=== PATIENT | female | born 1975 | race Two or more races ===

== ENCOUNTER 2020-08-19 08:53 | Outpatient (REF) | payer OTHER, SELFPAY | END 2020-08-19 08:54 | disposition home or self-care (01) | LOC: HO.LAB 08:53 | PROVIDERS: Visit Provider Internal Medicine | DX: Z20.828 Contact with and (suspected) exposure to other viral communicable diseases (principal) | CPT/HCPCS: C9803; U0003 ==

== ENCOUNTER 2021-01-04 07:33 | Outpatient (REF) | payer OTHER, SELFPAY ==
[2021-01-04 07:51] LABS: COVID-19 Test Negative (Negative)
== END 2021-01-04 07:34 | disposition home or self-care (01) ==
LOC: HO.LAB 07:33
PROVIDERS: Visit Provider Internal Medicine
DX: Z20.822 Contact with and (suspected) exposure to COVID-19 (principal)
CPT/HCPCS: 36415; 87635; C9803

== ENCOUNTER 2021-03-08 11:25 | Emergency (ER) | payer OTHER, SELFPAY ==
--- NOTE | ~2021-03-08 | XR_ITS ---
EXAMINATION: XR CHEST CLINICAL INFORMATION: Chest pain COMPARISON: None TECHNIQUE: Frontal view of the chest was obtained. FINDINGS: No significant abnormality is noted involving the heart, lungs, mediastinum, bony thorax or soft tissues. XR/XR chest 1V IMPRESSION: Unremarkable chest examination.
[2021-03-08 11:37] VITALS: BP 160/87; PULSE 85; RESP 18; TEMP 36.7; O2SAT 99; BMI 24.0
--- NOTE | 2021-03-08 11:44 | ECG_ITS ---
Test Reason : CP Blood Pressure : / mmHG Vent. Rate : 076 BPM Atrial Rate : 076 BPM P-R Int : 146 ms QRS Dur : 090 ms QT Int : 374 ms P-R-T Axes : 007 -11 008 degrees QTc Int : 420 ms Normal sinus rhythm Minimal voltage criteria for LVH, may be normal variant Inferior infarct , age undetermined Abnormal ECG When compared with ECG of 15-SEP-2019 14:20, Inferior infarct is now Present Referred By: Generic ED Physician Electronically Signed By:Quinton Rodriguez
[2021-03-08 12:31] LABS: MANUAL DIFF FLAG NO
[2021-03-08 12:39] LABS: Basophils Percent Auto 0.5 % (0-2); Eosinophils Percent Auto 0.4 % (0-4); Hematocrit 39.3 % (37-47); Hemoglobin 13.4 g/dl (12.0-16.0); Imm Gran Abs Auto 0.02 X10*3/uL (0.00-0.03); Imm Gran Pct Auto 0.2 % (0.0-0.4); Lymphocytes Absolute Auto 3.9 X10*3/uL (1.2-4.9); Lymphocytes Percent Auto 46.8 % (20-40); Mean Corpuscular HGB Conc 34.1 g/dl (31.0-35.0); Mean Corpuscular Hemoglobin 31.2 pg (27.0-33.0); Mean Corpuscular Volume 91.6 fL (80-98); Mean Platelet Volume 10.7 fL (9.4-12.3); Monocytes Absolute Auto 0.5 X10*3/uL (0.1-1.2); Neutrophils Absolute Auto 3.9 X10*3/uL (2.0-8.3); Neutrophils Percent Auto 46.1 % (45-73); Platelet Count 316 X10*3/uL (160-400); Red Blood Count 4.29 X10*6/uL (4.20-5.50); Red Cell Distribution Width 12.5 % (11.0-16.0); White Blood Count 8.3 X10*3/uL (4.8-10.8)
[2021-03-08 13:11] LABS: Anion Gap 9 (12-20); Blood Urea Nitrogen 12 mg/dL (9-16); Calcium 9.9 mg/dL (8.4-10.2); Carbon Dioxide 29 mmol/L (22-29); Chloride 105 mmol/L (96-108); Creatinine Clr Calc Pharmacy 82.9; Estimated Glomerular Filt Rate > 60; Glucose Random 99 mg/dL (60-115); Potassium 4.4 mmol/L (3.3-5.1); Sodium 139 mmol/L (135-145); Troponin-I High Sensitivity < 3.5 ng/L (<3.5-17.0)
--- NOTE | 2021-03-08 14:21 | ED.CHESTPAIN ---
HPI - Chest Pain General Chief Complaint: Chest Pain Stated Complaint: rapid hearbeat Time Seen by Provider: 03/08/21 14:21 Source: patient Mode of arrival: ambulatory Limitations: no limitations History of Present Illness HPI narrative: At work patient had tachycardia, she has a history of functional murmur. complaint: other (palpitations) Onset (ago): hour(s) Timing of current episode: constant Prior episodes: Yes Onset: during rest Pain radiation: none Relieving factors: nothing Exacerbating factors: nothing Risk Factors Coronary artery disease risk factors: none Related Data Previous Rx's Medication Instructions Recorded budesonide 90 mcg/actuation breath 1 inh INHALATION BID 30 Days #1 ea 12/07/20 activated powder inhaler gabapentin 300 mg capsule 300 mg PO TID 30 Days #90 cap 12/07/20 tramadol 50 mg tablet 50 mg PO BID PRN 30 Days #60 tab 12/07/20 cholestyramine (with sugar) 4 gram 1 ea PO BID #60 packet 02/27/21 powder for susp in a packet Allergies Allergy/AdvReac Type Severity Reaction Status Date / Time methylprednisolone Allergy Severe throat Verified 03/08/21 11:37 [From SOLU-MEDROL] swelling Sulfa (Sulfonamide Allergy Intermediate UNKNOWN, Verified 03/08/21 11:37 Antibiotics) hives, [SULFA (SULFONAMIDE hives ANTIBIOTICS)] naproxen AdvReac Intermediate nausea,head Verified 03/08/21 11:37 aches,tachy cardia Review of Systems Constitutional: Constitutional: Reports no additional constitutional complaints Eyes: Eyes: Reports no additional eye complaints ENT: Denies dizziness Cardiovascular: Cardiovascular: Reports no additional cardiovascular complaints Respiratory: Respiratory: Reports as per HPI Gastrointestinal: Gastrointestinal: Reports no additional gastrointestinal complaints Genitourinary: Genitourinary: Reports no additional female genitourinary complaints Musculoskeletal: Musculoskeletal: Reports no additional musculoskeletal complaints Integumentary/Breasts: Skin/Breast: Denies rash Neurologic: Reports system reviewed and no additional complaints, except as documented, Denies dizziness and Denies Sensory deficit (Neuro) Psychiatric: Psychiatric: Denies anxiety [facility] Past Medical History Medical History Back pain Bipolar 1 disorder Heart attack Murmur Seizures Shortness of breath Social History Social History Alcohol intake: never Patient Tobacco Use Status: Current everyday Tobacco user Cigarettes Per Day: 5 Use of substances other than those prescribed or required for medical reasons: Yes Substance Use Type: Marijuana Advance Directives: No Advance Directives Information Provided: No Patient : No Physical Exam Vital Signs: Vital Signs: Last Vital Signs Temp 98.1 F 03/08/21 11:37 Pulse 69 03/08/21 16:11 Resp 14 03/08/21 16:11 BP 107/80 03/08/21 16:11 Pulse Ox 99 03/08/21 16:11 Body Mass Index 24.0 Const: General: healthy appearing Nutritional Appearance: average body habitus Orientation/consciousness: oriented to person and patient oriented x3 Limitations: no limitations HENMT: Head: Yes normal to inspection Ears: external ears normal General nose exam: Normal external nose present Mouth: Normal oral and palatal mucosa present and oropharynx normal Throat: Yes posterior oropharynx normal Eyes: General: appearance normal, both eyes and all related structures Neck: Other: supple Neck: Yes normal visual inspection Chest: Chest palpation & inspection: normal inspection of the chest Resp: Auscultation: clear to auscultation bilaterally Cardio: Jugular venous distension: no JVD Rate: regular rate Rhythm: regular rhythm Heart sounds: S1 normal heart sound present and S2 normal heart sound present GI: Inspection: Yes normal to inspection Palpation (GI): Soft to palpation, nontender and No hepatosplenomegaly present Auscultation: normal bowel sounds : General: Yes no CVA tenderness Back/Spine/Pelvis: Back: no CVA tenderness Skin: General skin exam: no rashes or lesions noted Neuro: General: oriented to person and patient oriented x3 Cranial nerves: Yes CN's II-XII intact bilaterally Motor exam (neuro): 5/5 motor strength present throughout Sensory Exam: No Sensory deficit (Neuro) Extrem: General: Yes normal to inspection Psych: Appearance: grossly normal Course Course Course Narrative: troponins remain negative will dc home MDM - Chest Pain Lab Data Result diagrams: 03/08/21 12:13 03/08/21 12:13 Labs: Lab Results 03/08/21 03/08/21 03/08/21 Range/Units 12:13 12:13 12:13 WBC 8.3 (4.8-10.8) X10*3/uL RBC 4.29 (4.20-5.50) X10*6/uL Hgb 13.4 (12.0-16.0) g/dl Hct 39.3 (37-47) % MCV 91.6 (80-98) fL MCH 31.2 (27.0-33.0) pg MCHC 34.1 (31.0-35.0) g/dl RDW 12.5 (11.0-16.0) % Plt Count 316 (160-400) X10*3/uL MPV 10.7 (9.4-12.3) fL Immature Gran % (Auto) 0.2 (0.0-0.4) % Neut % (Auto) 46.1 (45-73) % Lymph % (Auto) 46.8 H (20-40) % [place] % (Auto) 6.0 (2-11) % Eos % (Auto) 0.4 (0-4) % Baso % (Auto) 0.5 (0-2) % Lymph # (Auto) 3.9 (1.2-4.9) X10*3/uL [place] # (Auto) 0.5 (0.1-1.2) X10*3/uL Eos # (Auto) 0.0 (0.0-0.4) X10*3/uL Baso # (Auto) 0.0 (0.0-0.2) X10*3/uL Abs Immat Gran (auto) 0.02 (0.00-0.03) X10*3/uL Absolute Neuts (auto) 3.9 (2.0-8.3) X10*3/uL Absolute Nucleated RBC 0.000 (0.0-0.012) X10*3/uL Nucleated RBC % (auto) 0.0 (0.0-0.2) /100WBC Sodium 139 (135-145) mmol/L Potassium 4.4 (3.3-5.1) mmol/L Chloride 105 (96-108) mmol/L Carbon Dioxide 29 (22-29) mmol/L Anion Gap 9 L (12-20) BUN 12 (9-16) mg/dL Creatinine 0.74 (0.5-1.4) mg/dL Estim Creat Clear Calc 82.9 Estimated GFR > 60 Random Glucose 99 (60-115) mg/dL Calcium 9.9 (8.4-10.2) mg/dL Troponin I High Sens < 3.5 (<3.5-17.0) ng/L 03/08/21 Range/Units 14:49 WBC (4.8-10.8) X10*3/uL RBC (4.20-5.50) X10*6/uL Hgb (12.0-16.0) g/dl Hct (37-47) % MCV (80-98) fL MCH (27.0-33.0) pg MCHC (31.0-35.0) g/dl RDW (11.0-16.0) % Plt Count (160-400) X10*3/uL MPV (9.4-12.3) fL Immature Gran % (Auto) (0.0-0.4) % Neut % (Auto) (45-73) % Lymph % (Auto) (20-40) % [place] % (Auto) (2-11) % Eos % (Auto) (0-4) % Baso % (Auto) (0-2) % Lymph # (Auto) (1.2-4.9) X10*3/uL [place] # (Auto) (0.1-1.2) X10*3/uL Eos # (Auto) (0.0-0.4) X10*3/uL Baso # (Auto) (0.0-0.2) X10*3/uL Abs Immat Gran (auto) (0.00-0.03) X10*3/uL Absolute Neuts (auto) (2.0-8.3) X10*3/uL Absolute Nucleated RBC (0.0-0.012) X10*3/uL Nucleated RBC % (auto) (0.0-0.2) /100WBC Sodium (135-145) mmol/L Potassium (3.3-5.1) mmol/L Chloride (96-108) mmol/L Carbon Dioxide (22-29) mmol/L Anion Gap (12-20) BUN (9-16) mg/dL Creatinine (0.5-1.4) mg/dL Estim Creat Clear Calc Estimated GFR Random Glucose (60-115) mg/dL Calcium (8.4-10.2) mg/dL Troponin I High Sens < 3.5 (<3.5-17.0) ng/L ECG Data ECG #1: Attestation: I personally reviewed and interpreted this ECG as follows: Interpretation: normal sinus rhythm rate of 75, no st or twave changes Discharge Plan Discharge Clinical Impression: Heart palpitations Patient Disposition: Home, Self-Care Instructions: Heart Palpitations (ED) Prescriptions: No Action cholestyramine (with sugar) 4 gram powder in packet 1 ea PO BID Qty: 60 RF: 6 budesonide 90 mcg/actuation aerosol powdr breath activated 1 inh inhalation BID 30 Days Qty: 1 RF: 3 tramadol 50 mg tablet 50 mg PO BID PRN (Reason: pain) 30 Days Qty: 60 RF: 0 gabapentin 300 mg capsule 300 mg PO TID 30 Days Qty: 90 RF: 3 Referrals: Alise Yap MD [Primary Care Provider] - 2 days
--- NOTE | 2021-03-08 15:02 | PC.NURSE ---
Patient is sitting up in bed watching tv in no distress. 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 Pt states that when she has the episodes of her heart racing that she gets short of breath.
[2021-03-08 15:03] VITALS: BP 109/73; PULSE 64; RESP 14; O2SAT 97
[2021-03-08 15:06] VITALS: PULSE 61
[2021-03-08 15:20] LABS: Troponin-I High Sensitivity < 3.5 ng/L (<3.5-17.0)
[2021-03-08 16:11] VITALS: BP 107/80; PULSE 69; RESP 14; O2SAT 99
--- NOTE | 2021-03-08 16:15 | PC.NURSE ---
Patient sitting up on side of bed in no distress after ambulating to the bathroom and back. Pt denies any increase in chest discomfort or feeling like her heart is racing. Pt states she is feeling better
--- NOTE | 2021-03-08 17:17 | PC.NURSE ---
Discharge instructions given to patient who verbalized understanding and denies any questions.
== END 2021-03-08 17:25 | disposition home or self-care (01) ==
PROVIDERS: Emergency Provider Emergency Medicine; PCP Internal Medicine
DX: R00.2 Palpitations (principal); R07.9 Chest pain, unspecified
CPT/HCPCS: 36415; 71045; 80048; 84484; 85025; 93005; 99283; 99285

== ENCOUNTER 2021-09-07 08:49 | Outpatient (REF) | payer OTHER, SELFPAY | END 2021-09-07 08:50 | disposition home or self-care (01) | LOC: HO.LAB 08:49 | PROVIDERS: Visit Provider Internal Medicine | DX: Z20.822 Contact with and (suspected) exposure to COVID-19 (principal) | CPT/HCPCS: C9803; U0003; U0005 ==

== ENCOUNTER 2021-10-06 08:47 | Outpatient (REF) | payer OTHER, SELFPAY ==
[2021-10-06 12:59] LABS: Influenza A PCR NEGATIVE (Negative); Influenza B PCR NEGATIVE (Negative); Resp Syncy Virus RNA Qual PCR NEGATIVE (Negative); SARS COV2 PCR INHOUSE NEGATIVE (Negative)
== END 2021-10-06 08:48 | disposition home or self-care (01) ==
LOC: HO.LAB 08:47
PROVIDERS: PCP Internal Medicine; Visit Provider Nurse Practitioner Family
DX: Z20.822 Contact with and (suspected) exposure to COVID-19 (principal); R05.9 Cough, unspecified
CPT/HCPCS: 0241U

== ENCOUNTER 2021-12-12 15:34 | Outpatient (REF) | payer OTHER, SELFPAY ==
[2021-12-12 16:46] LABS: Influenza A PCR NEGATIVE (Negative); Influenza B PCR NEGATIVE (Negative); Resp Syncy Virus RNA Qual PCR NEGATIVE (Negative); SARS COV2 PCR INHOUSE NEGATIVE (Negative)
== END 2021-12-12 15:35 | disposition home or self-care (01) ==
LOC: HO.LAB 15:34
PROVIDERS: PCP Internal Medicine; Visit Provider Nurse Practitioner Family
DX: Z20.822 Contact with and (suspected) exposure to COVID-19 (principal); R42 Dizziness and giddiness
CPT/HCPCS: 0241U

== ENCOUNTER → 2023-01-02 13:15 | Outpatient (BNVA) | payer OTHER, SELFPAY | PROVIDERS: PCP Internal Medicine; Visit Provider Psychiatry & Neurology Neurology | DX: R56.9 Unspecified convulsions (principal); R53.83 Other fatigue | CPT/HCPCS: 99202 ==

== ENCOUNTER 2023-05-02 13:39 | Outpatient (AMB) | payer OTHER, SELFPAY ==
[2023-05-02 13:52] VITALS: BP 118/64; PULSE 105; O2SAT 98; BMI 25.4
--- NOTE | 2023-05-02 13:52 | A.OFFPC_ITS ---
Vital Signs 05/02/23 13:52 Height 5 ft 4 in Weight 148 lb 2 oz BMI 25.4 BP 118/64 Blood Pressure Location Lt brachial Position Sitting Pulse 105 H Pulse Source Pulse Oximeter Pulse Oximetry (%) 98 Oxygen Delivery Method Room Air Intake Visit Reasons: [facility] 04/19 epilepsy Intake Note: Patient is here to follow-up after a visit the emergency department at [facility] on 04/19/2023 for Seizures. Spa Attendant Required: No Accompanied by: Self / Same As Patient Allergies methylprednisolone [From SOLU-MEDROL] Allergy (Severe, Verified 05/02/23 14:23) throat swelling Sulfa (Sulfonamide Antibiotics) [SULFA (SULFONAMIDE ANTIBIOTICS)] Allergy (Intermediate, Verified 05/02/23 14:23) UNKNOWN, hives, hives naproxen Adverse Reaction (Intermediate, Verified 05/02/23 14:23) nausea,headaches,tachycardia Medication List - Last Reconciled 05/02/23 by Alise Villasenor MD albuterol sulfate 90 mcg/actuation 2 inhalations inhalation Q6H PRN budesonide 90 mcg/actuation (Pulmicort Flexhaler) 1 inh inhalation BID carbamazepine ER 200 mg PO BID clonazepam 1 mg PO BID gabapentin 300 mg PO BEDTIME mirtazapine 7.5 - 15 mg PO QAM mirtazapine 30 mg PO BEDTIME simethicone (Gas Relief (simethicone)) 80 mg PO TID-QID PRN Tobacco use date assessed: 01/02/23 Dental Screening Dental Screen Date: 05/02/23 Did you have a dental visit in the last 12 months?: Yes Did you have a dental problem in the last 6 months where you did not have access to dental care?: No Was dental information given to patient?: Patient has dentist HPI HPI Comments History of Present Illness Details This is 47-year-old female with bipolar disorder and seizures that comes today for follow-up on her seizure meds. She did went to the ER at the beginning of the month due to tonic clonic seizures witnessed and had a head CT that was within normal limits and labs that were within normal limits. She does follow with Neurology and is on carbamazepine I am pure she has an appointment for an EEG at the end of this month. Has not had a seizures since she was discharged from ER. Bipolar disorder stable and this is follow by Psychiatry. PFSH Medical History Back pain Bipolar 1 disorder FH: cholecystectomy Heart attack Hot flushes, perimenopausal Murmur Seizure disorder Seizures Shortness of breath Social History Housing: Apartment Alcohol intake: never Patient Tobacco Use Status: Current everyday Tobacco user Tobacco use type: Cigarette Cigarettes Per Day: 2 e-Cigarette/Vaping Use: Never Used Second Hand Smoke Exposure: No Substance Use Type: Marijuana service: No Current occupational status: employed Cognitive needs: No Hearing needs: No Vision needs: No Questionnaire Thrive Questionnaire Date Thrive assessed: 05/02/23 I am a: Patient What is your living situation today?: I have a steady place to live Within the past 12 months, did the food you bought not last and you didn't have the money to get more?: Never true Within the past 12 months, did you worry whether your food would run out before you got money to buy more?: Never true Do you have trouble paying for medicines?: No Do you have trouble getting transportation to medical appointments?: No Do you have trouble paying your heating and electricity bill?: No Do you have trouble taking care of your child, family member or friend?: No Do you have trouble with day-to-day activities such as bathing, preparing meals, shopping, managing finances, etc.?: No Are you currently unemployed and looking for a job?: No Are you interested in more education?: No Please select the resources that you would like help with: None Currently or been in a relationship where the following occur: no concerns reported ACOSTA-7 AMB Questionnaire ACOSTA-7 Date ACOSTA - 7 assessed: 05/02/23 Feeling nervous, anxious, or on edge: 3 = Nearly every day Not being able to stop or control worryin = Nearly every day Worrying too much about different things: 3 = Nearly every day Trouble relaxin = Not at all Being so restless that it is hard to sit still: 0 = Not at all Becoming easily annoyed or irritable: 0 = Not at all Feeling afraid as if something awful might happen: 0 = Not at all Total ACOSTA-7 score (0-4 normal; 5-9 mild; 10-14 moderate; 15-21 severe): 9 Source: Developed by Drs. Harpreet Ortiz, Sena Azevedo, Deo Ortiz and colleagues, with an educational kira from [employer]. ACOSTA-7 Assessment Billing ACOSTA-7 Assessment Tool: ACOSTA-7 Assessment 28143 Review of Systems Const All systems reviewed & are unremarkable except as noted in HPI and below Eyes Reports no additional complaints, Denies change in vision and Denies other visual disturbances Card Denies chest pain at rest, Denies chest pain with activity, Denies edema, Denies irregular heart rhythm, Denies claudication, Denies dyspnea, Denies dyspnea on exertion, Denies orthopnea, Denies paroxysmal nocturnal dyspnea and Denies slow heart rate Resp Denies cough, Denies dyspnea and Denies dyspnea on exertion GI Denies abdominal pain, Denies change in bowel habits, Denies excessive flatus, Denies nausea and Denies vomiting Denies urinary incontinence, Denies urinary hesitancy and Denies urinary urgency Musc Denies abnormal gait, Denies atrophy, Denies deformity and Denies limited range of motion Skin/Breast Denies bleeding lesions, Denies changing lesions and Denies rash Neuro Denies abnormal gait and Denies lack of coordination Physical exam (Primary Care) Vital Signs: Last Vital Signs Pulse 105 H 05/02/23 13:52 BP 118/64 05/02/23 13:52 Pulse Ox 98 05/02/23 13:52 Oxygen Delivery Method Room Air 05/02/23 13:52 BMI result Body Mass Index 25.4 Tobacco/Smoking Status: Tobacco use Status Tobacco use date assessed 01/02/23 05/02/23 14:02 Patient Tobacco Use Status Current everyday Tobacco 05/02/23 14:02 Tobacco use type Cigarette 05/02/23 14:02 e-Cigarette/Vaping Use Never Used 05/02/23 14:02 Thrive Assessment: Date of Thrive Assessment Date Thrive assessed 05/02/23 05/02/23 14:02 Currently or been in a relationship where the following occur: no concerns reported Eyes General: appearance normal, both eyes and all related structures Eyelids: Yes eyelids normal Conjunctivae: conjunctivae normal Neck Neck: Yes normal visual inspection and Yes supple Resp Effort & Inspection: normal respiratory effort Auscultation: clear to auscultation bilaterally Cardio Jugular venous distension: no JVD Rate: regular rate Rhythm: regular rhythm Heart sounds: S1 normal heart sound present and S2 normal heart sound present Extrem General: Yes full ROM Assessment and Plan Assessment & Plan (1) Seizures: Code(s): R56.9 - Unspecified convulsions Plan: Continue carbamazepine. Follow-up with Neurology. (2) Bipolar 1 disorder: Code(s): F31.9 - Bipolar disorder, unspecified Plan: Continue mirtazapine. Follow-up with psychiatry. Coding Level of Care Code Est Pt Level 3 (25931) Diagnoses Seizures R56.9 Bipolar 1 disorder F31.9 Additional Codes ACOSTA-7 Assessment Billing - ACOSTA-7 Assessment Tool: ACOSTA-7 Assessment 56552 ([id number]) Time Spent (min) 18
== END 2023-05-02 14:35 | disposition home or self-care (01) ==
PROVIDERS: PCP Internal Medicine; Visit Provider Internal Medicine
DX: R56.9 Unspecified convulsions (principal); F31.9 Bipolar disorder, unspecified
CPT/HCPCS: 99213

== ENCOUNTER 2023-05-09 13:04 | Outpatient (REF) | payer OTHER, SELFPAY ==
--- NOTE | 2023-05-09 13:07 | EEG_ITS ---
This is a 16-channel EEG with an EKG lead. The patient is reported awake during the tracing. Background EEG rhythm is 16 to 20 hertz 5 to 20 microvolt posteriorly and lower amplitude fast anteriorly. Photic stimulation is unremarkable. Hyperventilation is not performed. Cardiac lead does not reveal any significant abnormality. No sharp wave spikes or paroxysmal tendency noted. IMPRESSION: Unremarkable EEG. MD ANDRIA Escobar/SRINATH / [id number]
== END 2023-05-09 13:05 | disposition home or self-care (01) ==
LOC: HO.NEURO 13:04
PROVIDERS: PCP Internal Medicine; Visit Provider Psychiatry & Neurology Neurology
DX: R56.9 Unspecified convulsions (principal)
CPT/HCPCS: 95816

== ENCOUNTER 2023-05-27 21:20 | Emergency (ER) | payer OTHER, SELFPAY ==
[2023-05-27 21:37] VITALS: BP 130/67; PULSE 87; RESP 18; TEMP 36.9; O2SAT 98; BMI 23.9
--- NOTE | 2023-05-27 21:41 | ECG_ITS ---
Test Reason : CHEST PAIN Blood Pressure : / mmHG Vent. Rate : 084 BPM Atrial Rate : 084 BPM P-R Int : 152 ms QRS Dur : 086 ms QT Int : 366 ms P-R-T Axes : 046 049 052 degrees QTc Int : 432 ms Normal sinus rhythm Septal infarct , age undetermined Abnormal ECG When compared with ECG of 08-MAR-2021 12:08, Septal infarct is now Present Criteria for Inferior infarct are no longer Present Referred By: Generic ED Physician Electronically Signed By:JOSH LION
[2023-05-27 22:03] LABS: MANUAL DIFF FLAG NO
[2023-05-27 22:04] LABS: Basophils Percent Auto 0.4 % (0-2); Eosinophils Percent Auto 0.4 % (0-4); Hematocrit 39.3 % (37.0-47.0); Hemoglobin 13.8 g/dl (12.0-16.0); Imm Gran Abs Auto 0.02 X10*3/uL (0.00-0.03); Imm Gran Pct Auto 0.2 % (0.0-0.4); Lymphocytes Absolute Auto 4.5 X10*3/uL (1.2-4.9); Lymphocytes Percent Auto 41.7 % (20-40); Mean Corpuscular HGB Conc 35.1 g/dl (31.0-35.0); Mean Corpuscular Hemoglobin 31.4 pg (27.0-33.0); Mean Corpuscular Volume 89.5 fL (80.0-98.0); Monocytes Absolute Auto 0.8 X10*3/uL (0.1-1.2); Monocytes Percent Auto 7.6 % (2-11); Neutrophils Absolute Auto 5.4 x10*3/uL (2.0-8.3); Neutrophils Percent Auto 49.7 % (45-73); Platelet Count 294 X10*3/uL (160-400); Red Blood Count 4.39 X10*6/uL (4.20-5.50); Red Cell Distribution Width 12.4 % (11.0-16.0); White Blood Count 10.9 X10*3/uL (4.8-10.8)
[2023-05-27 22:19] LABS: Alanine Aminotransferase 8 U/L (0-31); Albumin Level 4.4 g/dL (3.5-5.0); Alkaline Phosphatase 67 U/L (39-117); Anion Gap 10 (12-20); Aspartate Amino Transferase 13 U/L (5-31); Bilirubin Total 0.3 mg/dL (0.0-1.0); Blood Urea Nitrogen 9 mg/dL (9-16); Calcium 9.8 mg/dL (8.4-10.2); Carbon Dioxide 28 mmol/L (22-29); Chloride 105 mmol/L (96-108); Creatinine Clr Calc Pharmacy 84.6; Estimated Glomerular Filt Rate > 60; Glucose Random 108 mg/dL (60-115); Potassium 3.4 mmol/L (3.3-5.1); Sodium 140 mmol/L (135-145); Total Protein 7.6 g/dL (6.5-8.0)
[2023-05-27 22:26] LABS: Troponin-I High Sensitivity < 2.7 ng/L (<3.5-17.0)
[2023-05-28] VITALS: BP 111/67; PULSE 65; RESP 18; TEMP 36.8; O2SAT 97
--- NOTE | 2023-05-28 00:31 | ED_ITS ---
HPI - General Adult General Chief complaint: General Medical Stated complaint: gargling went to spit all came out black Time Seen by Provider: 05/28/23 00:30 Source: patient Mode of arrival: ambulatory Limitations: no limitations History of Present Illness HPI narrative: patient noticed black colored saliva after gargling her mouth earlier today no history of stomach issues no melena patient had coffee prior to that Related Data Home Medications Medication Instructions Recorded Confirmed clonazepam 1 mg tablet 1 mg PO BID 12/12/21 05/02/23 mirtazapine 15 mg tablet 7.5 - 15 mg PO QAM 12/12/21 05/02/23 budesonide 90 mcg/actuation breath 1 inh inhalation BID 01/02/23 05/02/23 activated powder inhaler (Pulmicort Flexhaler) mirtazapine 30 mg tablet 30 mg PO BEDTIME 05/02/23 05/02/23 Previous Rx's Medication Instructions Recorded simethicone 80 mg chewable tablet 80 mg PO TID-QID PRN abdominal 12/12/21 (Gas Relief (simethicone)) distention #20 tabs albuterol sulfate 90 mcg/actuation 2 inh inhalation Q6H PRN shortness 01/02/23 breath activated powder inhaler of breath or wheezing #1 ea carbamazepine 200 mg 200 mg PO BID #60 caps 01/02/23 capsule,extended release [id number] gabapentin 300 mg capsule 300 mg PO BEDTIME #30 caps 01/02/23 omeprazole 40 mg capsule,delayed 40 mg PO DAILY #20 caps 05/28/23 release Allergies Allergy/AdvReac Type Severity Reaction Status Date / Time methylprednisolone Allergy Severe throat Verified 05/02/23 14:23 [From SOLU-MEDROL] swelling Sulfa (Sulfonamide Allergy Intermediate UNKNOWN, Verified 05/02/23 14:23 Antibiotics) hives, [SULFA (SULFONAMIDE hives ANTIBIOTICS)] naproxen AdvReac Intermediate nausea,head Verified 05/02/23 14:23 aches,tachy cardia Review of Systems 2 Review of Systems: Yes all other systems are reviewed and are negative PMFSH Past Medical History Medical History Seizure disorder FH: cholecystectomy Hot flushes, perimenopausal Murmur Heart attack Bipolar 1 disorder Seizures Back pain Shortness of breath Social History Social History Housing: Apartment Alcohol intake: never Patient Tobacco Use Status: Current everyday Tobacco user Tobacco use type: Cigarette Cigarettes Per Day: 2 Smoked in Last 30 Days: Yes e-Cigarette/Vaping Use: Never Used Second Hand Smoke Exposure: No Use of substances other than those prescribed or required for medical reasons: Yes Substance Use Type: Marijuana Advance Directives: No Advance Directives Information Provided: Yes service: No Current occupational status: employed Cognitive needs: No Hearing needs: No Vision needs: No Physical Exam ED Vital Signs: Vital Signs - 24 hr 05/27/23 21:37 05/28/23 00:00 Temperature 98.4 F 98.2 F Pulse Rate 87 65 Respiratory Rate 18 18 Blood Pressure 130/67 111/67 Pulse Oximetry 98 97 Oxygen Delivery Method Room Air Room Air BMI result Body Mass Index 23.9 Appearance: Alert. Oriented X3. No acute distress. anxious ENT: Pharynx normal. Oral Mucosa moist no oral lesion Neck: Normal inspection. Neck supple. CVS: Normal heart rate and rhythm. Pulses normal. Respiratory: No respiratory distress. Equal air entry bilateral, no wheezing/rales/rhonchi Abdomen: Soft and nontender. Bowel sounds are present, no mass palpable, no CVA tenderness rectal: no stool no blood Skin: Skin warm and dry. Normal skin color. Normal skin turgor. Medications Administered Discontinued Medications Generic Name Dose Route Start Last Admin Trade Name Freq PRN Reason Stop Dose Admin Al Hydroxide/Mg Hydroxide 30 ml 05/28/23 00:45 05/28/23 01:04 Magnesium Hydrox/Alum Hydrox 30 Ml Oral.Susp PO 05/28/23 00:46 30 ml ONCE ONE Administration Famotidine 20 mg 05/28/23 00:46 05/28/23 01:04 Famotidine 20 Mg Tablet PO 05/28/23 00:47 20 mg ONCE ONE Administration Medical Decision Making Medical Decision Making MDM Narrative: patient with nonspecific findings clinically likely from the coughing patient had before will discharge patient on Maalox and Prilosec Lab Data [facility] Lab Attestation statement: I reviewed the patient's lab results. 05/27/23 21:58 05/27/23 21:58 Labs: Lab Results 05/27/23 Range/Units 21:58 WBC 10.9 H (4.8-10.8) X10*3/uL RBC 4.39 (4.20-5.50) X10*6/uL Hgb 13.8 (12.0-16.0) g/dl Hct 39.3 (37.0-47.0) % MCV 89.5 (80.0-98.0) fL MCH 31.4 (27.0-33.0) pg MCHC 35.1 H (31.0-35.0) g/dl RDW 12.4 (11.0-16.0) % Plt Count 294 (160-400) X10*3/uL MPV 10.0 (9.4-12.3) fL Immature Gran % (Auto) 0.2 (0.0-0.4) % Neut % (Auto) 49.7 (45-73) % Lymph % (Auto) 41.7 H (20-40) % [place] % (Auto) 7.6 (2-11) % Eos % (Auto) 0.4 (0-4) % Baso % (Auto) 0.4 (0-2) % Lymph # (Auto) 4.5 (1.2-4.9) X10*3/uL [place] # (Auto) 0.8 (0.1-1.2) X10*3/uL Eos # (Auto) 0.0 (0.0-0.4) X10*3/uL Baso # (Auto) 0.0 (0.0-0.2) X10*3/uL Abs Immat Gran (auto) 0.02 (0.00-0.03) X10*3/uL Absolute Neuts (auto) 5.4 (2.0-8.3) x10*3/uL Absolute Nucleated RBC 0.000 (0.0-0.012) X10*3/uL Nucleated RBC % (auto) 0.0 (0.0-0.2) /100WBC Sodium 140 (135-145) mmol/L Potassium 3.4 D (3.3-5.1) mmol/L Chloride 105 (96-108) mmol/L Carbon Dioxide 28 (22-29) mmol/L Anion Gap 10 L (12-20) BUN 9 (9-16) mg/dL Creatinine 0.71 (0.5-1.4) mg/dL Estim Creat Clear Calc 84.6 Estimated GFR > 60 Random Glucose 108 (60-115) mg/dL Calcium 9.8 (8.4-10.2) mg/dL Total Bilirubin 0.3 (0.0-1.0) mg/dL AST 13 (5-31) U/L ALT 8 (0-31) U/L Alkaline Phosphatase 67 (39-117) U/L Troponin I High Sens < 2.7 (<3.5-17.0) ng/L Total Protein 7.6 (6.5-8.0) g/dL Albumin 4.4 (3.5-5.0) g/dL Discharge Plan Discharge Clinical Impression: Acute gastritis Patient Disposition: Home, Self-Care Instructions: Gastritis (ED) Additional Instructions: possibly you have gastritis take Prilosec daily and follow-up with PCP Prescriptions: New omeprazole 40 mg capsule,delayed release(DR/EC) 40 mg PO DAILY Qty: 20 0RF No Action clonazepam 1 mg tablet 1 mg PO BID mirtazapine 15 mg tablet 7.5 - 15 mg PO QAM simethicone [Gas Relief (simethicone)] 80 mg tablet,chewable 80 mg PO TID-QID PRN (Reason: abdominal distention) Qty: 20 0RF albuterol sulfate 90 mcg/actuation aerosol powdr breath activated 2 inh inhalation Q6H PRN (Reason: shortness of breath or wheezing) Qty: 1 0RF mirtazapine 30 mg tablet 30 mg PO BEDTIME Pulmicort Flexhaler 90 mcg/actuation aerosol powdr breath activated 1 inh inhalation BID carbamazepine 200 mg capsule, ER multiphase 12 hr 200 mg PO BID Qty: 60 6RF gabapentin 300 mg capsule 300 mg PO BEDTIME Qty: 30 3RF Interventions: ED Discharge Assessment Last Done: 05/28/23 01:16 Discharge Date/Time: 05/28/23 01:16
[2023-05-28] MEDS: Magnesium Hydrox/Alum Hydrox 30 ML ORAL.SUSP PO (01:04)
[2023-05-28] MEDS: Famotidine 20 MG TABLET PO (01:04)
--- NOTE | 2023-05-28 01:15 | PC.NURSE ---
this rn at bedside with dr luo for rectal exam pt medicated according to nancy. pt ambulatory at discharge. pt provided with discharge packet. pt verbalized understanding of discharge plan
== END 2023-05-28 01:16 | disposition home or self-care (01) ==
PROVIDERS: Emergency Provider Internal Medicine; PCP Internal Medicine
DX: K29.00 Acute gastritis without bleeding (principal); F17.210 Nicotine dependence, cigarettes, uncomplicated; F12.90 Cannabis use, unspecified, uncomplicated; R05.9 Cough, unspecified; Z79.899 Other long term (current) drug therapy
CPT/HCPCS: 36415; 80053; 84484; 85025; 93005; 99283; 99284

== ENCOUNTER 2023-07-11 11:48 | Outpatient (AMB) | payer OTHER, SELFPAY ==
[2023-07-11 11:49] VITALS: BP 126/82; PULSE 84; O2SAT 99; BMI 24.2
--- NOTE | 2023-07-11 11:49 | MHC.PC.OV ---
Vital Signs 07/11/23 11:49 Height 5 ft 4 in Weight 141 lb BMI 24.2 BP 126/82 Blood Pressure Location Lt brachial Position Sitting Pulse 84 Pulse Source Pulse Oximeter Pulse Oximetry (%) 99 Oxygen Delivery Method Room Air Intake Visit Reasons: [facility] ED 05/27 Carbon-like Substance out of mouth Intake Note: Patient is here to follow-up after a visit the emergency department at [facility] on 05/27 Radiology Specialist Required: No Allergies methylprednisolone [From SOLU-MEDROL] Allergy (Severe, Verified 07/11/23 12:05) throat swelling Sulfa (Sulfonamide Antibiotics) [SULFA (SULFONAMIDE ANTIBIOTICS)] Allergy (Intermediate, Verified 07/11/23 12:05) UNKNOWN, hives, hives naproxen Adverse Reaction (Intermediate, Verified 07/11/23 12:05) nausea,headaches,tachycardia Medication List - Last Reconciled 07/11/23 by Carly العلي, ANNE MARIE albuterol sulfate 90 mcg/actuation 2 inhalations inhalation Q6H PRN budesonide 90 mcg/actuation (Pulmicort Flexhaler) 1 inh inhalation BID carbamazepine ER 200 mg PO BID clonazepam 1 mg PO BID gabapentin 300 mg PO BEDTIME mirtazapine 7.5 - 15 mg PO QAM mirtazapine 30 mg PO BEDTIME omeprazole 40 mg PO DAILY simethicone (Gas Relief (simethicone)) 80 mg PO TID-QID PRN Tobacco use date assessed: 07/11/23 Dental Screening Dental Screen Date: 07/11/23 Did you have a dental visit in the last 12 months?: Yes Did you have a dental problem in the last 6 months where you did not have access to dental care?: No Was dental information given to patient?: Patient has dentist HPI [facility] ED 05/27 Carbon-like Substance out of mouth HPI Details Patient is a 47-year-old female who presents today to follow-up after [facility] visit 05/27/2023 due to spitting up black saliva. Patient of Dr. Ellis. Per ED notes: patient noticed black colored saliva after gargling her mouth earlier today no history of stomach issues no melena patient had coffee prior to that patient with nonspecific findings clinically likely from the coughing patient had before will discharge patient on Maalox and Prilosec Patient was diagnosed with acute gastritis and sent home with omeprazole. Today, patient denies any black substance coming from her mouth. She denies abdominal pain. Reports taking omeprazole only as needed. Patient also reports intermittent palpitations in her heart, she did have in the hospital EKG with no acute findings. Patient has history of murmur. Denies shortness of breath or chest pain. Also patient reports last seizure 3 months ago and she is followed by Dr. Abdi. [facility] Medical History (Updated 07/11/23 @ 12:19 by ANNE MARIE Jha) Seizure disorder FH: cholecystectomy Hot flushes, perimenopausal Murmur Heart attack Bipolar 1 disorder Seizures Back pain Shortness of breath Social History Housing: Apartment Alcohol intake: never Patient Tobacco Use Status: Current everyday Tobacco user Tobacco use type: Cigarette Cigarettes Per Day: 2 e-Cigarette/Vaping Use: Never Used Second Hand Smoke Exposure: No Substance Use Type: Marijuana service: No Current occupational status: employed Cognitive needs: No Hearing needs: No Vision needs: No Questionnaire Thrive Questionnaire Date Thrive assessed: 05/02/23 AUDIT C Alcohol Use Questionnaire (AUDIT-C) 1. How often do you have a drink containing alcohol?: Never 2. How many drinks containing alcohol do you have on a typical day when you are drinking?: 1 or 2 3. How often do you have six or more drinks on one occasion?: Never Total Score: 0 Score Reviewed/Action Taken: No ACOSTA-7 AMB Questionnaire ACOSTA-7 Date ACOSTA - 7 assessed: 05/02/23 Source: Developed by Drs. Harpreet Ortiz, Sena Azevedo, Deo Ortiz and colleagues, with an educational kira from [employer]. Review of Systems Const Denies body aches, Denies chills, Denies fever(s) and Denies headache(s) ENT Denies dizziness, Denies otalgia, Denies headache(s), Denies nasal discharge, Denies sinus pain and Denies sore throat Card Denies chest pain, Denies edema, Denies lightheadedness, Reports palpitations and Denies dyspnea Resp Denies cough, Denies dyspnea and Denies wheezing GI Denies abdominal pain, Denies constipation, Denies diarrhea, Denies nausea and Denies vomiting Denies dysuria Musc Denies myalgias Skin/Breast Denies rash Neuro Denies dizziness and Denies headache(s) Endo Reports palpitations Aller/Immun Denies wheezing Physical exam (Primary Care) Vital Signs: Last Vital Signs Pulse 84 07/11/23 11:49 BP 126/82 07/11/23 11:49 Pulse Ox 99 07/11/23 11:49 Oxygen Delivery Method Room Air 07/11/23 11:49 BMI result Body Mass Index 24.2 Tobacco/Smoking Status: Tobacco use Status Tobacco use date assessed 07/11/23 07/11/23 11:51 Patient Tobacco Use Status Current everyday Tobacco 07/11/23 11:51 Tobacco use type Cigarette 07/11/23 11:51 e-Cigarette/Vaping Use Never Used 07/11/23 11:51 Thrive Assessment: Date of Thrive Assessment Date Thrive assessed 05/02/23 07/11/23 11:51 Const General: cooperative and no acute distress Orientation/consciousness: patient oriented x3 HENMT Head: Yes normocephalic and Yes atraumatic Throat: Yes posterior oropharynx normal Eyes General: appearance normal, both eyes and all related structures Neck Neck: Yes normal visual inspection, Yes full ROM and Yes no lymphadenopathy Resp Effort & Inspection: normal respiratory effort and able to speak in complete sentences Auscultation: clear to auscultation bilaterally, no crackles, no rales, no rhonchi and no wheezes Cardio Rate: regular rate Rhythm: regular rhythm Heart sounds: S1 normal heart sound present, S2 normal heart sound present and Murmur heart sound present GI Auscultation: normal bowel sounds Skin General skin exam: no rashes or lesions noted Neuro General: patient oriented x3 Gait exam (Neuro): Normal gait present Extrem General: Yes full ROM and No edema Assessment and Plan Assessment & Plan (1) Murmur: Code(s): R01.1 - Cardiac murmur, unspecified Plan: Will obtain echocardiogram (2) Acute gastritis: Code(s): K29.00 - Acute gastritis without bleeding Plan: Patient reports taking omeprazole daily as needed Avoid acidic foods Signs and symptoms reviewed when to notify provider or go to the emergency department Plan Keep appointment with PCP as scheduled or follow-up sooner as needed Orders: Orders CA echo transthoracic complete Today R01.1 - Cardiac murmur, unspecified Medications: Refilled albuterol sulfate 90 mcg/actuation 2 inhalations inhalation Q6H PRN 1 ea 0RF shortness of breath or wheezing J45.909 - Unspecified asthma, uncomplicated Coding Level of Care Code Est Pt Level 3 (77864) Diagnoses Murmur R01.1 Acute gastritis K29.00
== END 2023-07-11 12:27 | disposition home or self-care (01) ==
PROVIDERS: PCP Internal Medicine; Visit Provider Nurse Practitioner Family
DX: R01.1 Cardiac murmur, unspecified (principal); K29.00 Acute gastritis without bleeding
CPT/HCPCS: 99213

== ENCOUNTER → 2023-08-06 10:56 | Outpatient (REF) | payer OTHER, SELFPAY ==
--- NOTE | 2023-08-06 11:01 | CA_ITS ---
Transthoracic Echocardiogram Patient (Last, First, Middle): Neela Alfonso, Gender: Female Date of : 1975 Age: 47 Procedure Date: 08/06/2023 Procedure Type: Transthoracic Echocardiogram Location: OP Height: 165.1 cm Weight: 63.5 kg BSA: 1.70 m2 Heart Rate: bpm BP: 135 / 84 mmHg Pharm Spec: [facility] Referring MD: Carly KENNEY Symptoms: R01.1 - Cardiac murmur, unspecified Study Quality: Adequate ECG Rhythm: Sinus Conclusions: - The left ventricular systolic function is normal. The calculated ejection fraction is 59% by biplane method. - No obvious valvular pathology seen on this study. Findings Left Ventricle Normal left ventricular cavity size. There is normal left ventricular wall thickness. The left ventricular systolic function is normal. The calculated ejection fraction is 59% by biplane method. There is no evidence of regional wall motion abnormalities. Diastolic function is normal for age. LV peak GLS -18.8%. Right Ventricle Normal right ventricular cavity size and systolic function. Atria Both atria are normal in size. Aortic Valve There is a normal trileaflet aortic valve. There is no aortic valve stenosis. There is no aortic valve regurgitation. Mitral Valve The mitral valve appears normal. There is no mitral valve regurgitation. There is no mitral valve stenosis. Pulmonic Valve The pulmonic valve is likely normal. Tricuspid Valve Normal tricuspid valve structure. There is mild tricuspid valve regurgitation. There is no evidence of pulmonary hypertension. Great Vessels The asc aorta is normal in size. Venous The inferior vena cava is normal in size and collapses greater than 50% with inspiration. Pericardium/Pleural There is no evidence of pericardial effusion. Prior Study Comparison No significant change compared to prior study dated: 08/01/2017. Recommendations, Care & Conclusions No obvious valvular pathology seen on this study. Measurements 2D Linear Measurements IVSd: 0.88 0.6-0.9/0.6-1.0 cm LVIDd: 4.05 3.9-5.3/4.2-5.9 cm LVIDd Index: 2.38 2.4-3.2/2.2-3.1 cm/m2 LVIDs: 2.87 2.0-3.6 cm LVPWd: 0.79 0.7-1.1 cm LA Diam: 2.60 2.7-3.8/3.0-4.0 cm LAIDs Index: 1.53 1.5-2.3 cm/m2 LV Mass: 125.55 67-162/88-224 g LV Mass Index: 73.85 43-95/49-115 g/m2 LVOT Diam: 1.70 3.0+(-)1.3 cm 2D Systolic Function EF 4C: 52.90 >55% EF 2C: 63.40 >55% EF BiP: 59.10 >55% Mitral Valve MV Pk E: 0.79 MV PK A: 0.62 MV Decel Time: 289.00 E/A: 1.30 E'Lateral: 16.00 E'Medial: 8.92 E/E' Med: 8.90 E/E' Lat: 5.00 PHT: 85.00 MVA PHT: 2.59 Decel [place]: 2.74 Aortic Valve AoV Pk Dheeraj: 1.31 AoV Mn Dheeraj: 0.98 AoV VTI: 0.29 AoV Pk Grad: 7.00 Aov Mn Grad: 4.00 SACHA Cont.VTI: 1.79 LVOT LVOT Pk Dheeraj: 1.11 LVOT Mn Dheeraj: 0.66 LVOT VTI: 0.23 LVOT Pk Grad: 5.00 LVOT Mn Grad: 2.00 LVOT Diam: 1.70 LVOT Area: 2.27 Diastolic Function MV Pk E: 0.79 MV Pk A: 0.62 E/A: 1.30 E'Medial: 8.92 E/E' Med: 8.90 E' Laterial: 16.00 E/E' Lat: 5.00 Right Ventricle TAPSE (mm): 17.80 TVS' Dheeraj: 10.60 Tricuspid Valve TR Pk Dheeraj: 2.23 TR Pk Grad: 20.00 RA Press: 3.00 RVSP: 23.00 Great Vessels Aorta Sinus of Valsalva: 2.76 2.0-3.[address] [place]: 2.24 1.7-3.4 cm Ao Asc: 2.50 2.1-3.4 cm Updated in Other Vendor System with Status of Final Jamin Akbar MD electronically signed on 08/06/2023 1:32:27 PM with status of Final
== END ==
LOC: HO.CARD 10:56
PROVIDERS: PCP Internal Medicine; Visit Provider Nurse Practitioner Family
DX: R01.1 Cardiac murmur, unspecified (principal)
CPT/HCPCS: 93306; 93356

== ENCOUNTER → 2023-08-06 11:01 | Outpatient (BNV) | payer OTHER, SELFPAY | PROVIDERS: PCP Internal Medicine; Visit Provider Internal Medicine | DX: I36.1 Nonrheumatic tricuspid (valve) insufficiency (principal) | CPT/HCPCS: 93306 ==

== ENCOUNTER 2023-12-02 11:48 | Emergency (ER) | payer OTHER, SELFPAY ==
--- NOTE | 2023-12-02 12:33 | ED.GENADULT ---
HPI - General Adult General Chief complaint: Fever Stated complaint: Body aches, weakness Time Seen by Provider: 12/02/23 15:04 Source: patient Mode of arrival: ambulatory Limitations: no limitations History of Present Illness HPI narrative: Patient is a 48 year old assigned female at with a history of bipolar disorder presenting to the emergency department today with a fever and body aches. Patient states that other people at her work have been sick and now she has a fever and body aches. Patient denies any dizziness, lightheadedness, abdominal pain, nausea, vomiting, chills, blurry vision, double vision, loss of vision, chest pain, difficulty breathing, shortness of breath, back pain, night sweats, pain with urination, increased urinary frequency, increased urinary urgency, blood in her urine or stool, syncope or a near syncopal episode, recent trauma or falls, bowel incontinence, bladder incontinence, bowel retention, bladder retention, or any other complaints at this time. Onset (ago): hour(s) Severity: mild Relieving factors: none Exacerbating factors: none Associated symptoms: fever/chills Treatments prior to arrival: none Related Data Home Medications Medication Instructions Recorded Confirmed clonazepam 1 mg tablet 1 mg PO BID 12/12/21 07/11/23 mirtazapine 15 mg tablet 7.5 - 15 mg PO QAM 12/12/21 07/11/23 budesonide 90 mcg/actuation breath 1 inh inhalation BID 01/02/23 07/11/23 activated powder inhaler (Pulmicort Flexhaler) mirtazapine 30 mg tablet 30 mg PO BEDTIME 05/02/23 07/11/23 Previous Rx's Medication Instructions Recorded simethicone 80 mg chewable tablet 80 mg PO TID-QID PRN abdominal 12/12/21 (Gas Relief (simethicone)) distention #20 tabs carbamazepine 200 mg 200 mg PO BID #60 caps 01/02/23 capsule,extended release [id number] gabapentin 300 mg capsule 300 mg PO BEDTIME #30 caps 01/02/23 omeprazole 40 mg capsule,delayed 40 mg PO DAILY #20 caps 05/28/23 release albuterol sulfate 90 mcg/actuation 2 puff inhalation Q4-6H PRN 10/11/23 aerosol inhaler (Ventolin HFA) shortness of breath or wheezing #8.5 grams Allergies Allergy/AdvReac Type Severity Reaction Status Date / Time methylprednisolone Allergy Severe throat Verified 12/02/23 12:34 [From SOLU-MEDROL] swelling Sulfa (Sulfonamide Allergy Intermediate UNKNOWN, Verified 12/02/23 12:34 Antibiotics) hives, [SULFA (SULFONAMIDE hives ANTIBIOTICS)] naproxen AdvReac Intermediate nausea,head Verified 12/02/23 12:34 aches,tachy cardia Review of Systems Constitutional: Constitutional: Reports no additional constitutional complaints, Reports body ache(s), Denies chills, Reports fever(s) and Denies night sweats Eyes: Eyes: Reports no additional eye complaints, Denies blurry vision, Denies change in vision, Denies diplopia, Denies eye discharge, Denies loss of vision and Denies eye pain ENT: Denies dizziness Cardiovascular: Cardiovascular: Reports no additional cardiovascular complaints, Denies chest pain, Denies lightheadedness, Denies Loss of Consciousness and Denies dyspnea Respiratory: Respiratory: Reports no additional respiratory complaints and Denies dyspnea Gastrointestinal: Gastrointestinal: Reports no additional gastrointestinal complaints, Denies abdominal pain, Denies melena, Denies hematochezia, Denies change in bowel habits and Denies change in stool character Genitourinary: Genitourinary: Denies hematuria, Denies urinary frequency, Denies dysuria, Denies urinary incontinence, Denies urinary hesitancy and Denies urinary urgency Musculoskeletal: Musculoskeletal: Reports no additional musculoskeletal complaints, Denies numbness and Denies tingling Neurologic: Denies dizziness, Denies loss of vision, Denies numbness and Denies tingling Psychiatric: Psychiatric: Reports no additional psychiatric complaints Endocrine: Endocrine: Reports no additional endocrine complaints Hematologic/Lymphatic: Hematologic/Lymphatic: Reports no additional hematologic/lymphatic complaints Allergic/Immunologic: Allergic/Immunologic: Reports no additional allergic/immunologic complaints PMFSH Past Medical History Attestation statement: The following information was validated with the patient. Source: old records reviewed and nursing notes reviewed Medical History Seizure disorder FH: cholecystectomy Hot flushes, perimenopausal Murmur Heart attack Bipolar 1 disorder Seizures Back pain Shortness of breath Social History Social History Housing: Apartment Alcohol intake: never Patient Tobacco Use Status: Current everyday Tobacco user Tobacco use type: Cigarette Cigarettes Per Day: 2 e-Cigarette/Vaping Use: Never Used Second Hand Smoke Exposure: No Substance Use Type: Marijuana Advance Directives: No Advance Directives Information Provided: No service: No Current occupational status: employed Cognitive needs: No Hearing needs: No Vision needs: No Physical Exam ED Vital Signs: Vital Signs - 24 hr 12/02/23 12:34 Temperature 99.6 F Pulse Rate 83 Respiratory Rate 16 Blood Pressure 111/67 Pulse Oximetry 97 Oxygen Delivery Method Room Air BMI result Body Mass Index 23.2 Const General: cooperative, no acute distress, alert and awake Nutritional Appearance: well nourished Orientation/consciousness: patient oriented x3 Limitations: no limitations HENMT Head: Yes normal to inspection and Yes atraumatic Ears: hearing grossly normal bilaterally and external ears normal General nose exam: Normal external nose present, no nasal discharge noted and no epistaxis Face and sinus: Yes normal facial exam, No abrasion and No laceration Mouth: Normal oral and palatal mucosa present, no drooling and no muffled voice Eyes General: appearance normal, both eyes and all related structures Periorbital: periorbital findings normal Eyelids: Yes eyelids normal Conjunctivae: conjunctivae normal Pupils: Equal, round and reactive pupils present EOM: EOMs intact bilaterally Neck Neck: Yes normal visual inspection, Yes full ROM and Yes no lymphadenopathy Chest Chest palpation & inspection: normal inspection of the chest Resp Effort & Inspection: normal respiratory effort and able to speak in complete sentences GI Inspection: Yes normal to inspection Neuro General: patient oriented x3 and moves all extremities Cranial nerves: Yes Equal, round and reactive pupils present Cognition (Neuro): normal cognition Motor exam (neuro): 5/5 motor strength present throughout Sensory Exam: Normal double simultaneous stimulation for sensation Coordination: [id number] test normal Extrem General: Yes normal to inspection, Yes full ROM and Yes capillary refill normal Psych Appearance: grossly normal Mental Status: mental status grossly normal Affect: normal affect Attitude: cooperative Thought process: Normal thought process present Thought content: Normal thought content present Insight: Good insight present (Psych) Course Course Course Narrative: RME performed by Margaret Wu PA-C. Patient is a 48 year old assigned female at presenting to the emergency department with body aches. Detailed physical exam and review of systems are deferred to the [employer] force planners. Swabs ordered. Patient placed back in the waiting room pending room availability and results. Medical Decision Making Medical Decision Making MDM Narrative: Patient is a 48 year old assigned female at with a history of bipolar disorder presenting to the emergency department today with fever and body aches. Patient's physical exam was unremarkable. Patient left the department without completing treatment. Patient left the department before having the testing ordered, performed. Patient left the department before myself or any of the other emergency department clinicians could review or explain physical exam findings, the need or lack there of for additional testing, need or lack there of for hospital admission, treatment options, or a treatment plan. Differential Diagnosis Differential Diagnoses: The differential diagnosis associated with the presentation includes COVID-19 Influenza RSV URI Admission/Observation Consideration of admission/observation: Escalation of care including admission/observation considered Patient left the department without completing treatment. Discharge Plan Discharge Clinical Impression: Body aches Patient Disposition: Left W/O Completing Treatment Prescriptions: No Action albuterol sulfate [Ventolin HFA] 90 mcg/actuation HFA aerosol inhaler 2 puff inhalation Q4-6H PRN (Reason: shortness of breath or wheezing) Qty: 8.5 0RF omeprazole 40 mg capsule,delayed release(DR/EC) 40 mg PO DAILY Qty: 20 0RF clonazepam 1 mg tablet 1 mg PO BID mirtazapine 15 mg tablet 7.5 - 15 mg PO QAM simethicone [Gas Relief (simethicone)] 80 mg tablet,chewable 80 mg PO TID-QID PRN (Reason: abdominal distention) Qty: 20 0RF mirtazapine 30 mg tablet 30 mg PO BEDTIME Pulmicort Flexhaler 90 mcg/actuation aerosol powdr breath activated 1 inh inhalation BID carbamazepine 200 mg capsule, ER multiphase 12 hr 200 mg PO BID Qty: 60 6RF gabapentin 300 mg capsule 300 mg PO BEDTIME Qty: 30 3RF Discharge Date/Time: 12/02/23 15:24
[2023-12-02 12:34] VITALS: BP 111/67; PULSE 83; RESP 16; TEMP 37.6; O2SAT 97; BMI 23.2
== END 2023-12-02 15:24 | disposition left against medical advice (07) ==
PROVIDERS: Emergency Provider Emergency Medicine; PCP Internal Medicine
DX: R52 Pain, unspecified (principal); R50.9 Fever, unspecified
CPT/HCPCS: 99281

== ENCOUNTER 2023-12-04 14:26 | Outpatient (AMB) | payer OTHER, SELFPAY ==
[2023-12-04 14:27] VITALS: BP 112/70; BMI 23.0
--- NOTE | 2023-12-04 14:27 | A.OFFPC_ITS ---
Vital Signs 12/04/23 14:27 Height 5 ft 4 in Weight 134 lb BMI 23.0 BP 112/70 Blood Pressure Location Lt brachial Position Sitting Intake Visit Reasons: sob, body aches Intake Note: patient here for bodyaches, fevers, sob Embedded Systems Software Developer Required: No Accompanied by: Self / Same As Patient Allergies methylprednisolone [From SOLU-MEDROL] Allergy (Severe, Verified 12/04/23 14:43) throat swelling Sulfa (Sulfonamide Antibiotics) [SULFA (SULFONAMIDE ANTIBIOTICS)] Allergy (Intermediate, Verified 12/04/23 14:43) UNKNOWN, hives, hives naproxen Adverse Reaction (Intermediate, Verified 12/04/23 14:43) nausea,headaches,tachycardia Medication List - Last Reconciled 12/04/23 by Alise Villasenor MD albuterol sulfate 90 mcg/actuation (Ventolin HFA) 2 puffs inhalation Q4-6H PRN budesonide 90 mcg/actuation (Pulmicort Flexhaler) 1 inh inhalation BID clonazepam 1 mg PO BID gabapentin 300 mg PO BEDTIME mirtazapine 7.5 - 15 mg PO QAM mirtazapine 30 mg PO BEDTIME omeprazole 40 mg PO DAILY simethicone (Gas Relief (simethicone)) 80 mg PO TID-QID PRN Tobacco use date assessed: 12/04/23 Dental Screening Dental Screen Date: 12/04/23 Did you have a dental visit in the last 12 months?: No Did you have a dental problem in the last 6 months where you did not have access to dental care?: No Was dental information given to patient?: Patient has dentist HPI HPI Comments History of Present Illness Details This is a 48-year-old female with bipolar disorder, asthma and chronic back pain that comes today as a hospital discharge follow-up with discharge date 12/02/2023 due to diffuse body aches, sore throat, productive cough and fatigue and tiredness that started 5 days ago. She admits having sick contacts at work. No change in bowel or bladder habits. Also had fever since 5 days ago. Tested negative for COVID-19 at home. Strep test today was negative. Will order COVID, flu and RSV. I will also order a chest x-ray. Bipolar disorder has been stable. Use rescue inhaler for her asthma. Use gabapentin for her pain. Also has GERD that has been stable with PPIs. [facility] Medical History (Updated 12/04/23 @ 15:48 by Alise Villasenor MD) Seizure disorder FH: cholecystectomy Hot flushes, perimenopausal Murmur Heart attack Bipolar 1 disorder Seizures Back pain Shortness of breath Surgical History History of cholecystectomy Social History Housing: Apartment Alcohol intake: never Patient Tobacco Use Status: Current everyday Tobacco user Tobacco use type: Cigarette Cigarettes Per Day: 2 e-Cigarette/Vaping Use: Never Used Second Hand Smoke Exposure: No Substance Use Type: Marijuana service: No Current occupational status: employed Cognitive needs: No Hearing needs: No Vision needs: No Questionnaire PHQ-9 Over the last 2 weeks, how often have you been bothered by any of the following problems? 1. Little interest or pleasure in doing things: not at all 2. Feeling down, depressed, or hopeless: several days 3. Trouble falling or staying asleep, or sleeping too much: not at all 4. Feeling tired or having little energy: not at all 5. Poor appetite or overeating: not at all 6. Feeling bad about yourself - or that you are a failure or have let yourself or your family down: not at all 7. Trouble concentrating on things, such as reading the newspaper or watching television: not at all 8. Moving or speaking so slowly that other people could have noticed. Or the opposite - being so fidgety or restless that you have been moving around a lot more than usual: not at all 9. Thoughts that you would be better off or of hurting yourself in some way: not at all Total score: 1 Depression Screening Interpretation: Negative Depression Screening Done: Yes 39388 - PHQ-9 Billing: Yes Source: Developed by Drs. Harpreet Ortiz, Sena Azevedo, Deo Ortiz and colleagues, with an educational kira from [employer]. Thrive Questionnaire Date Thrive assessed: 12/04/23 I am a: Patient What is your living situation today?: I have a steady place to live Within the past 12 months, did the food you bought not last and you didn't have the money to get more?: Never true Within the past 12 months, did you worry whether your food would run out before you got money to buy more?: Never true Do you have trouble paying for medicines?: No Do you have trouble getting transportation to medical appointments?: No Do you have trouble paying your heating and electricity bill?: No Do you have trouble taking care of your child, family member or friend?: No Do you have trouble with day-to-day activities such as bathing, preparing meals, shopping, managing finances, etc.?: No Are you currently unemployed and looking for a job?: No Are you interested in more education?: No Please select the resources that you would like help with: None Currently or been in a relationship where the following occur: no concerns reported THRIVE Score: 0 AUDIT C Alcohol Use Questionnaire (AUDIT-C) 1. How often do you have a drink containing alcohol?: Never Total Score: 0 Score Reviewed/Action Taken: No ACOSTA-7 AMB Questionnaire ACOSTA-7 Date ACOSTA - 7 assessed: 12/04/23 Feeling nervous, anxious, or on edge: 1 = Several days Not being able to stop or control worryin = Not at all Worrying too much about different things: 0 = Not at all Trouble relaxin = Not at all Being so restless that it is hard to sit still: 0 = Not at all Becoming easily annoyed or irritable: 0 = Not at all Feeling afraid as if something awful might happen: 0 = Not at all Total ACOSTA-7 score (0-4 normal; 5-9 mild; 10-14 moderate; 15-21 severe): 1 Source: Developed by Drs. Harpreet Ortiz, Sena Azevedo, Deo Ortiz and colleagues, with an educational kira from [employer]. ACOSTA-7 Assessment Billing ACOSTA-7 Assessment Tool: ACOSTA-7 Assessment 95024 Review of Systems Const All systems reviewed & are unremarkable except as noted in HPI and below Reports body aches, Reports chills, Reports fever(s) and Reports lethargy Eyes Reports no additional complaints, Denies change in vision and Denies other visual disturbances Card Denies chest pain at rest, Denies chest pain with activity, Denies edema, Denies irregular heart rhythm, Denies claudication, Denies dyspnea, Denies dyspnea on exertion, Denies orthopnea, Denies paroxysmal nocturnal dyspnea and Denies slow heart rate Resp Denies cough, Denies dyspnea and Denies dyspnea on exertion GI Denies abdominal pain, Denies change in bowel habits, Denies excessive flatus, Denies nausea and Denies vomiting Denies urinary incontinence, Denies urinary hesitancy and Denies urinary urgency Musc Denies abnormal gait, Denies atrophy, Denies deformity and Denies limited range of motion Skin/Breast Denies bleeding lesions, Denies changing lesions and Denies rash Neuro Denies abnormal gait and Denies lack of coordination Physical exam (Primary Care) Vital Signs: Last Vital Signs BP 112/70 12/04/23 14:27 BMI result Body Mass Index 23.0 Tobacco/Smoking Status: Tobacco use Status Tobacco use date assessed 12/04/23 12/04/23 14:37 Patient Tobacco Use Status Current everyday Tobacco 12/04/23 14:37 Tobacco use type Cigarette 12/04/23 14:37 e-Cigarette/Vaping Use Never Used 12/04/23 14:37 PHQ-9: PHQ-9 Score PHQ-9: Total score 1 12/04/23 14:56 Depression Screening Interpretation: Negative Thrive Assessment: Date of Thrive Assessment Date Thrive assessed 12/04/23 12/04/23 14:37 Currently or been in a relationship where the following occur: no concerns reported HENMT Throat: Yes other (erythematous tonsils) Neck Neck: Yes normal visual inspection and Yes supple Resp Effort & Inspection: normal respiratory effort Auscultation: clear to auscultation bilaterally Cardio Jugular venous distension: no JVD Rate: regular rate Rhythm: regular rhythm Heart sounds: S1 normal heart sound present and S2 normal heart sound present Extrem General: Yes full ROM Psych Appearance: grossly normal Results AMB Rapid Strep AMB Rapid Strep Negative Last Edit by GRIFFIN Corral on 12/04/23 15: 01 Results Reviewed Results Reviewed: Laboratory Last Values Strep Scn Rapid Clinic Negative 12/04/23 14:57 Assessment and Plan Assessment & Plan (1) Hospital discharge follow-up: Code(s): Z09 - Encounter for follow-up examination after completed treatment for conditions other than malignant neoplasm Plan: Discharge date 12/02/2023 due to upper respiratory infection. Still has fever. She said she left due to waiting too long. (2) URI (upper respiratory infection): Code(s): J06.9 - Acute upper respiratory infection, unspecified Plan: COVID, flu and RSV ordered. (3) Bipolar 1 disorder: Code(s): F31.9 - Bipolar disorder, unspecified Plan: Continue mirtazapine. (4) Asthma: Code(s): J45.909 - Unspecified asthma, uncomplicated Plan: Use rescue inhaler as needed. (5) Back pain: Code(s): M54.9 - Dorsalgia, unspecified Qualifiers: Back pain location: back pain in unspecified location Chronicity: chronic Back pain laterality: midline Qualified Code(s): M54.9 - Dorsalgia, unspecified; G89.29 - Other chronic pain Plan: Continue gabapentin. (6) Chronic GERD: Code(s): K21.9 - Gastro-esophageal reflux disease without esophagitis Plan: Continue PPIs. Orders: Orders SARS-CoV2/FLU/RSV Today R09.89 - Other specified symptoms and signs involving the circulatory and respiratory systems XR chest 2V Today R05.9 - Cough, unspecified AMB Rapid Strep Screen Today Z13.9 - Encounter for screening, unspecified Coding Level of Care Code TCM Mod MDM <= 7 Days Diagnoses Hospital discharge follow-up Z09 URI (upper respiratory infection) J06.9 Bipolar 1 disorder F31.9 Asthma J45.909 Chronic midline back pain, unspecified back location M54.9; G89.29 Back pain location: back pain in unspecified location Chronicity: chronic Back pain laterality: midline Chronic GERD K21.9 Additional Codes ACOSTA-7 Assessment Billing - ACOSTA-7 Assessment Tool: ACOSTA-7 Assessment 42006 ([id number]) Time Spent (min) 22
== END 2023-12-04 15:16 | disposition home or self-care (01) ==
PROVIDERS: PCP Internal Medicine; Visit Provider Internal Medicine
DX: J02.9 Acute pharyngitis, unspecified (principal); F31.9 Bipolar disorder, unspecified; Z09 Encounter for follow-up examination after completed treatment for conditions other than malignant neoplasm; J06.9 Acute upper respiratory infection, unspecified; J45.909 Unspecified asthma, uncomplicated; M54.9 Dorsalgia, unspecified; G89.29 Other chronic pain; K21.9 Gastro-esophageal reflux disease without esophagitis
CPT/HCPCS: 87880; 99213

== ENCOUNTER 2023-12-04 15:26 | Outpatient (REF) | payer OTHER, SELFPAY ==
--- NOTE | ~2023-12-04 | XR_ITS ---
EXAMINATION: XR CHEST CLINICAL INFORMATION: Cough COMPARISON: 03/08/2021 TECHNIQUE: 2 views of the chest were obtained. FINDINGS: No significant abnormality is noted involving the heart, lungs, mediastinum, bony thorax or soft tissues. XR/XR chest 2V IMPRESSION: Unremarkable examination, without interval change.
[2023-12-04 16:34] LABS: Influenza A PCR POSITIVE (Negative); Influenza B PCR NEGATIVE (Negative); Resp Syncy Virus RNA Qual PCR NEGATIVE (Negative); SARS COV2 PCR INHOUSE NEGATIVE (Negative)
== END 2023-12-04 15:27 | disposition home or self-care (01) ==
LOC: HO.XRAY 15:26
PROVIDERS: PCP Internal Medicine; Visit Provider Internal Medicine
DX: R09.89 Other specified symptoms and signs involving the circulatory and respiratory systems (principal); R05.9 Cough, unspecified
CPT/HCPCS: 0241U; 71046

== ENCOUNTER 2024-01-30 05:55 | Emergency (ER) | payer OTHER, SELFPAY ==
--- NOTE | ~2024-01-30 | XR_ITS ---
EXAMINATION: XR CHEST CLINICAL INFORMATION: Irregular heartbeat. COMPARISON: None available. TECHNIQUE: Frontal view of the chest was obtained. FINDINGS: No significant abnormality is noted involving the heart, lungs, mediastinum, bony thorax or soft tissues. XR/XR chest 1V IMPRESSION: Unremarkable examination.
--- NOTE | 2024-01-30 05:57 | ECG_ITS ---
Test Reason : IRREGULAR HEART BEAT Blood Pressure : / mmHG Vent. Rate : 081 BPM Atrial Rate : 081 BPM P-R Int : 146 ms QRS Dur : 082 ms QT Int : 372 ms P-R-T Axes : 057 050 037 degrees QTc Int : 432 ms Normal sinus rhythm Normal ECG When compared with ECG of 27-MAY-2023 21:45, Criteria for Septal infarct are no longer Present Referred By: Generic ED Physician Electronically Signed By:MARQUIS ALMODOVAR MD
[2024-01-30 06:11] VITALS: BP 139/66; PULSE 80; RESP 16; TEMP 36.3; O2SAT 100; BMI 23.2
[2024-01-30 06:14] LABS: MANUAL DIFF FLAG NO
[2024-01-30 06:20] LABS: Basophils Percent Auto 0.6 % (0-2); Eosinophils Absolute Auto 0.1 X10*3/uL (0.0-0.4); Eosinophils Percent Auto 0.9 % (0-4); Hematocrit 37.6 % (37.0-47.0); Hemoglobin 12.9 g/dl (12.0-16.0); Imm Gran Abs Auto 0.02 X10*3/uL (0.00-0.03); Imm Gran Pct Auto 0.3 % (0.0-0.4); Lymphocytes Absolute Auto 2.4 X10*3/uL (1.2-4.9); Lymphocytes Percent Auto 38.1 % (20-40); Mean Corpuscular HGB Conc 34.3 g/dl (31.0-35.0); Mean Corpuscular Hemoglobin 31.7 pg (27.0-33.0); Mean Corpuscular Volume 92.4 fL (80.0-98.0); Mean Platelet Volume 10.5 fL (9.4-12.3); Monocytes Absolute Auto 0.4 X10*3/uL (0.1-1.2); Monocytes Percent Auto 6.9 % (2-11); Neutrophils Absolute Auto 3.4 x10*3/uL (2.0-8.3); Neutrophils Percent Auto 53.2 % (45-73); Platelet Count 291 X10*3/uL (160-400); Red Blood Count 4.07 X10*6/uL (4.20-5.50); Red Cell Distribution Width 12.6 % (11.0-16.0); White Blood Count 6.4 X10*3/uL (4.8-10.8)
--- NOTE | 2024-01-30 06:34 | PC.NURSE ---
pt ambulatory into room, a&ox4, respirations even and unlabored; site interpreter at bedside. pt reporting starting this AM she devloped chest pain, headache, nausea and left arm tingling/numbness. pt reports seizure hx and reports when arm goes numb she has seizures. pt unsure what seizure medications she takes. pt denies sob, vomiting and diarrhea. 20G placed in right AC, pt normal sinus on tele 65-67bpm.
[2024-01-30 06:35] LABS: Anion Gap 13 (12-20); Blood Urea Nitrogen 7 mg/dL (9-16); Calcium 9.2 mg/dL (8.4-10.2); Carbon Dioxide 23 mmol/L (22-29); Chloride 107 mmol/L (96-108); Creatinine Clr Calc Pharmacy 87.1; Estimated Glomerular Filt Rate > 60; Glucose Random 124 mg/dL (60-115); Potassium 4.3 mmol/L (3.3-5.1); Sodium 139 mmol/L (135-145)
--- NOTE | 2024-01-30 06:40 | PC.NURSE ---
business developer at bedside, pt explained about seizure precautions, seizure precautions in place.
[2024-01-30 06:47] LABS: Troponin-I High Sensitivity < 2.7 ng/L (<3.5-17.0)
--- NOTE | 2024-01-30 07:07 | ED_ITS ---
HPI - Chest Pain General Chief Complaint: Chest Pain Stated Complaint: irregular heart beat, epileptic Time Seen by Provider: 01/30/24 06:41 Source: patient Mode of arrival: ambulatory History of Present Illness HPI narrative: 48-year-old female arrives from work stating that she experienced a very difficult work situation that led to her experiencing symptoms left hand numbness/palpitations/chest pain and reports that this is her symptoms prior to having a seizure in the past. 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 She takes her medications as prescribed and has not missed any, she currently sees a neurologist in [place] and was recently started on Keppra for breakthrough seizures. Related Data Home Medications ?Medication ?Instructions ?Recorded ?Confirmed clonazepam 1 mg tablet 1 mg PO BID 12/12/21 12/04/23 mirtazapine 15 mg tablet 7.5 - 15 mg PO QAM 12/12/21 12/04/23 budesonide 90 mcg/actuation breath 1 inh inhalation BID 01/02/23 12/04/23 activated powder inhaler (Pulmicort Flexhaler) mirtazapine 30 mg tablet 30 mg PO BEDTIME 05/02/23 12/04/23 Previous Rx's ?Medication ?Instructions ?Recorded simethicone 80 mg chewable tablet 80 mg PO TID-QID PRN abdominal 12/12/21 (Gas Relief (simethicone)) distention #20 tabs gabapentin 300 mg capsule 300 mg PO BEDTIME #30 caps 01/02/23 omeprazole 40 mg capsule,delayed 40 mg PO DAILY #20 caps 05/28/23 release albuterol sulfate 90 mcg/actuation 2 puff inhalation Q4-6H PRN 01/04/24 aerosol inhaler (Ventolin HFA) shortness of breath or wheezing #8.5 grams Allergies Allergy/AdvReac Type Severity Reaction Status Date / Time methylprednisolone Allergy Severe throat Verified 01/30/24 06:17 [From SOLU-MEDROL] swelling Sulfa (Sulfonamide Allergy Intermediate UNKNOWN, Verified 01/30/24 06:17 Antibiotics) hives, [SULFA (SULFONAMIDE hives ANTIBIOTICS)] naproxen AdvReac Intermediate nausea,head Verified 01/30/24 06:17 aches,tachy cardia Review of Systems 2 Review of Systems: Pertinent positives and negatives as stated in HPI PMFSH Past Medical History Source: nursing notes reviewed Medical History Seizure disorder FH: cholecystectomy Hot flushes, perimenopausal Murmur Heart attack Bipolar 1 disorder Seizures Back pain Shortness of breath Surgical History History of cholecystectomy Social History Social History Housing: Apartment Alcohol intake: never Patient Tobacco Use Status: Current everyday Tobacco user Tobacco use type: Cigarette Cigarettes Per Day: 2 Smoked in Last 30 Days: Yes e-Cigarette/Vaping Use: Never Used Second Hand Smoke Exposure: No Use of substances other than those prescribed or required for medical reasons: Yes Substance Use Type: Marijuana Substance Use Frequency: Daily Advance Directives: No Patient : No service: No Current occupational status: employed Cognitive needs: No Hearing needs: No Vision needs: No Physical Exam 2 Vital Signs: Vital Signs: Last Vital Signs Temp 97.4 F 01/30/24 06:11 Pulse 80 01/30/24 06:11 Resp 16 01/30/24 06:11 BP 139/66 01/30/24 06:11 Pulse Ox 100 01/30/24 06:11 O2 Del Method Room Air 01/30/24 06:11 BMI result Body Mass Index 23.2 VITAL SIGNS: Reviewed. GENERAL: Well developed, well nourished, in no acute distress. HEAD: Normocephalic/atraumatic EYES: PERRLA, EOMI EARS: Ext canals without abnormality NOSE: Nares patent bilateral OROPHARYNX: no oral lesions noted, posterior pharynx clear NECK: Supple, no adenopathy LUNGS: Normal breath sounds. No adventitious sounds or accessory muscle use. SpO2<100> CARDIOVASCULAR: Regular rate and rhythm without noted murmurs ABDOMEN: Soft, non-tender, non-distended with bowel sounds. MUSCULOSKELETAL: No tenderness, deformities, or effusions noted on gross inspection. EXTREMITIES: No cyanosis, clubbing or edema. SKIN: Inspection of the skin reveals no rashes NEUROLOGIC: Alert and oriented x 4. Strength and sensation to light touch were grossly intact x 4, no facial asymmetry, no pronator drift, cranial nerves 2-12 are grossly intact. Medical Decision Making Medical Decision Making [facility] Narrative: 48-year-old female with history and clinical presentation, DDX: Anxiety, panic attack, Infection/electrolyte derangements, no clinical suspicion for ACS/irregular heartbeat I reviewed all investigations and hematologic indices are negative for leukocytosis/left shift/anemia/thrombocytopenia. Chemistry indices are negative for BRITTON/electrolyte derangements and high sensitivity troponin is undetectable and in combination with an otherwise benign EKG no concern that this is a primary cardiac event. Keppra levels were ordered and will need to be followed up in the outpatient setting. Patient is otherwise nonfocal and no clinical suspicion for intracranial abnormality. Chest x-ray negative for infiltrate or venous congestion otherwise my interpretation is in agreement with radiology's impression. Urinalysis negative for infection and urine is negative. Differential Diagnosis Differential Diagnoses: The differential diagnosis associated with the presentation includes Please see the discussion above Admission/Observation Consideration of admission/observation: Escalation of care including admission/observation considered Please see the discussion above Lab Data [facility] Lab Attestation statement: I reviewed the patient's lab results. Please see the discussion above 01/30/24 06:09 01/30/24 06:09 Labs: Lab Results 01/30/24 01/30/24 Range/Units 06:09 07:36 WBC 6.4 (4.8-10.8) X10*3/uL RBC 4.07 L (4.20-5.50) X10*6/uL Hgb 12.9 (12.0-16.0) g/dl Hct 37.6 (37.0-47.0) % MCV 92.4 (80.0-98.0) fL MCH 31.7 (27.0-33.0) pg MCHC 34.3 (31.0-35.0) g/dl RDW 12.6 (11.0-16.0) % Plt Count 291 (160-400) X10*3/uL MPV 10.5 (9.4-12.3) fL Immature Gran % (Auto) 0.3 (0.0-0.4) % Neut % (Auto) 53.2 (45-73) % Lymph % (Auto) 38.1 (20-40) % Hopkins % (Auto) 6.9 (2-11) % Eos % (Auto) 0.9 (0-4) % Baso % (Auto) 0.6 (0-2) % Lymph # (Auto) 2.4 (1.2-4.9) X10*3/uL Hopkins # (Auto) 0.4 (0.1-1.2) X10*3/uL Eos # (Auto) 0.1 (0.0-0.4) X10*3/uL Baso # (Auto) 0.0 (0.0-0.2) X10*3/uL Abs Immat Gran (auto) 0.02 (0.00-0.03) X10*3/uL Absolute Neuts (auto) 3.4 (2.0-8.3) x10*3/uL Absolute Nucleated RBC 0.000 (0.0-0.012) X10*3/uL Nucleated RBC % (auto) 0.0 (0.0-0.2) /100WBC Sodium 139 (135-145) mmol/L Potassium 4.3 (3.3-5.1) mmol/L Chloride 107 (96-108) mmol/L Carbon Dioxide 23 (22-29) mmol/L Anion Gap 13 (12-20) BUN 7 L (9-16) mg/dL Creatinine 0.71 (0.5-1.4) mg/dL Estim Creat Clear Calc 87.1 Estimated GFR > 60 Random Glucose 124 H (60-115) mg/dL Calcium 9.2 D (8.4-10.2) mg/dL Troponin I High Sens < 2.7 (<3.5-17.0) ng/L Urine Color Yellow Urine Appearance Clear Urine pH 7.5 (5.0-9.0) Ur Specific Jakin <= 1.005 (1.005-1.025) Urine Protein Negative (Neg-Trace) mg/dL Urine Glucose (UA) Negative (Negative) mg/dL Urine Ketones Negative (Negative) mg/dL Urine Blood Moderate (2+) H (Negative) Urine Nitrite Negative (Negative) Ur Leukocyte Esterase Negative (Negative) Urine RBC 0-2 (0-2) /HPF Urine WBC 0-5 (0-5) /HPF Ur Squamous Epith Cells 0-2 (0-2) /HPF Urine Bacteria None Seen (None Seen) Hyaline Casts 0-2 (0-2) /LPF Urine Test NEGATIVE (NEGATIVE) Independent Interpretation I performed an independent interpretation of an: EKG Interpretation: Normal sinus rhythm, HR-81, no STEMI, IN/QRS/QTC is within normal limits. Comparison EKG May/2023 without acute changes. External Record Review External record reviewed: Outpatient record, Prior outpatient labs and Prior outpatient radiology Chronic Conditions Epilepsy Critical Care Time Critical Care Time Critical Care Time: Yes Total Critical Care Time: 30 Attestation: I personally attest to this time spent taking care of the patient. Discharge Plan Discharge Clinical Impression: Anxiety attack Patient Disposition: Home, Self-Care Instructions: Panic Attack (ED) Additional Instructions: 1. Resume all home medications as prescribed. 2. Please follow-up with your primary care doctor in the next 3-4 days. Return to the emergency room for any worsening of symptoms. Prescriptions: No Action albuterol sulfate [Ventolin HFA] 90 mcg/actuation HFA aerosol inhaler 2 puff inhalation Q4-6H PRN (Reason: shortness of breath or wheezing) Qty: 8.5 0RF omeprazole 40 mg capsule,delayed release(DR/EC) 40 mg PO DAILY Qty: 20 0RF clonazepam 1 mg tablet 1 mg PO BID mirtazapine 15 mg tablet 7.5 - 15 mg PO QAM simethicone [Gas Relief (simethicone)] 80 mg tablet,chewable 80 mg PO TID-QID PRN (Reason: abdominal distention) Qty: 20 0RF mirtazapine 30 mg tablet 30 mg PO BEDTIME Pulmicort Flexhaler 90 mcg/actuation aerosol powdr breath activated 1 inh inhalation BID gabapentin 300 mg capsule 300 mg PO BEDTIME Qty: 30 3RF Referrals: Alise Yap MD [Primary Care Provider] - Stand Alone Forms: Work/School Release Print Language: Belarusian
[2024-01-30 07:45] LABS: Appearance Urine Clear; Color Urine Yellow; Glucose Urine UA Negative (Negative); Leukocyte Esterase Urine Negative (Negative); Nitrite Urine Negative (Negative); PH 7.5 (5.0-9.0); Specific Gravity - Urine <= 1.005 (1.005-1.025); UMIC TRIGGER UACC YES; UPreg QC Valid YES; Urine Blood Moderate (2+) (Negative); Urine Ketones Negative (Negative); Urine Pregnancy NEGATIVE (NEGATIVE); Urine Protein Negative (Neg-Trace)
[2024-01-30 07:57] LABS: Bacteria Urine None Seen (None Seen); Hyaline Casts Urine 0-2 /LPF (0-2); RBC Urine 0-2 /HPF (0-2); Squamous Epithelial Cell Urine 0-2 /HPF (0-2); WBC Urine 0-5 /HPF (0-5)
[2024-01-30 08:12] VITALS: BP 107/51; PULSE 68; RESP 15; TEMP 36.3; O2SAT 99
[2024-02-04 00:14] LABS: Levetiracetam Keppra <2.0 mcg/mL (6.0-46.0)
== END 2024-01-30 08:16 | disposition home or self-care (01) ==
PROVIDERS: Emergency Provider Student in an Organized Health Care Education/Training Program; PCP Internal Medicine
DX: F41.0 Panic disorder [episodic paroxysmal anxiety] (principal); G40.909 Epilepsy, unspecified, not intractable, without status epilepticus; Z79.899 Other long term (current) drug therapy
CPT/HCPCS: 36415; 71045; 80048; 80177; 81001; 81025; 84484; 85025; 93005; 99283; 99285

== ENCOUNTER → 2024-01-30 05:57 | Outpatient (BNV) | payer OTHER, SELFPAY | PROVIDERS: Emergency Provider Student in an Organized Health Care Education/Training Program; PCP Internal Medicine; Visit Provider Internal Medicine Cardiovascular Disease | DX: I49.9 Cardiac arrhythmia, unspecified (principal) | CPT/HCPCS: 93010 ==

== ENCOUNTER 2024-04-23 11:12 | Emergency (ER) | payer SELFPAY ==
--- NOTE | ~2024-04-23 | CT_ITS ---
EXAMINATION: CT ABDOMEN AND PELVIS WITHOUT CONTRAST CLINICAL INFORMATION: Epigastric abdominal pain COMPARISON: CT abdomen pelvis 08/14/2017 TECHNIQUE: Multidetector volumetric imaging was performed from the superior aspect of the liver through the pubic symphysis. Sagittal and coronal reformatted images were obtained on the technologist's workstation. This CT examination was performed using dose optimization techniques as appropriate, variously including the following: *Automated exposure control *Adjustment of mA and/or kV according to patient size (this includes techniques or standardized protocols for targeted exams where dose is matched to indication/reason for exam; i.e. extremities or head) *Use of iterative reconstruction technique DLP: 373 mGy-cm FINDINGS: LUNG BASES: The visualized lung bases are unremarkable. LIVER, GALLBLADDER, AND BILIARY TREE: The liver is normal in size, shape, and attenuation. No focal hepatic lesion or biliary ductal dilatation is present. The gallbladder is not seen as previously. PANCREAS: Unremarkable. SPLEEN: Unremarkable. ADRENAL GLANDS: Unremarkable. KIDNEYS AND URETERS: The kidneys are normal in size, shape, and attenuation. A single tiny 2 mm punctate nonobstructing left mid to lower pole calculus is seen. No hydronephrosis, hydroureter, or additional calculi seen. No perinephric stranding. BLADDER: Only partially distended but unremarkable GASTROINTESTINAL TRACT: The small and large bowel are unremarkable. The appendix is unremarkable. ABDOMINAL WALL: No significant hernia is appreciated. There is a tiny periumbilical hernia seen containing only fat. LYMPH NODES: No retroperitoneal lymphadenopathy. VASCULAR: Unremarkable. PELVIC VISCERA: The uterus and adnexa are unremarkable. OSSEOUS STRUCTURES: Unremarkable. CT/CT abdomen pelvis wo IV con IMPRESSION: 1. A cause for the patient's epigastric pain has not been found. 2. Incidental note made of a 2 mm nonobstructing left renal calculus. Fleischner guidelines were followed.
[2024-04-23 11:35] VITALS: BP 147/69; PULSE 88; RESP 16; TEMP 36.6; O2SAT 95; BMI 23.0
--- NOTE | 2024-04-23 11:36 | ED.GENADULT ---
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 She denies trauma however states she does have history of dental caries. She scheduled an appointment to see her dentist today however was not able to make it due to abdominal pain and diarrhea that started overnight. She describes it as periumbilical pain and nonbloody diarrhea. Her diarrhea has resolved however she is still experiencing abdominal pain. She denies nausea, vomiting, urinary symptoms, chest pain, shortness of breath. She does endorse experiencing chills during the night Related Data Home Medications ?Medication ?Instructions ?Recorded ?Confirmed clonazepam 1 mg tablet 1 mg PO BID 12/12/21 12/04/23 mirtazapine 15 mg tablet 7.5 - 15 mg PO QAM 12/12/21 12/04/23 mirtazapine 30 mg tablet 30 mg PO BEDTIME 05/02/23 12/04/23 Previous Rx's ?Medication ?Instructions ?Recorded simethicone 80 mg chewable tablet 80 mg PO TID-QID PRN abdominal 12/12/21 (Gas Relief (simethicone)) distention #20 tabs gabapentin 300 mg capsule 300 mg PO BEDTIME #30 caps 01/02/23 omeprazole 40 mg capsule,delayed 40 mg PO DAILY #20 caps 05/28/23 release albuterol sulfate 90 mcg/actuation 2 puff inhalation Q4-6H PRN for 02/20/24 aerosol inhaler (Ventolin HFA) wheezing 30 days #18 ea budesonide 90 mcg/actuation breath 1 inh inhalation BID 30 days #1 ea 02/20/24 activated powder inhaler (Pulmicort Flexhaler) amoxicillin 500 mg-potassium 1 tab PO Q12H dental infection 7 04/23/24 clavulanate 125 mg tablet days #14 tabs (Augmentin) Allergies Allergy/AdvReac Type Severity Reaction Status Date / Time methylprednisolone Allergy Severe throat Verified 04/23/24 11:39 [From SOLU-MEDROL] swelling Sulfa (Sulfonamide Allergy Intermediate UNKNOWN, Verified 04/23/24 11:39 Antibiotics) hives, [SULFA (SULFONAMIDE hives ANTIBIOTICS)] naproxen AdvReac Intermediate nausea,head Verified 04/23/24 11:39 aches,tachy cardia Review of Systems Review of Systems: Patient endorses tooth pain, abdominal pain and diarrhea Patient denies head pain, chest pain, vomiting, dysuria/hematuria PMFSH Past Medical History Medical History Seizure disorder FH: cholecystectomy Hot flushes, perimenopausal Murmur Heart attack Bipolar 1 disorder Seizures Back pain Shortness of breath Surgical History History of cholecystectomy Social History Social History Housing: Apartment Alcohol intake: never Patient Tobacco Use Status: Current everyday Tobacco user Tobacco use type: Cigarette Cigarettes Per Day: 2 e-Cigarette/Vaping Use: Never Used Second Hand Smoke Exposure: No Substance Use Type: Marijuana Advance Directives: No service: No Current occupational status: employed Cognitive needs: No Hearing needs: No Vision needs: No Physical Exam ED Vital Signs: Vital Signs - 24 hr 04/23/24 11:35 04/23/24 20:00 Temperature 98 F 96.8 F Pulse Rate 88 68 Respiratory Rate 16 16 Blood Pressure 147/69 H 103/64 Pulse Oximetry 95 100 Oxygen Delivery Method Room Air Room Air BMI result Body Mass Index 23.0 On exam this is a well-appearing 48-year-old female Head atraumatic normocephalic; no focal neurologic deficits appreciated Lungs clear to auscultation bilaterally; normal S1-S2 regular rate and rhythm Periumbilical tenderness to palpation CC: Abdomen is otherwise soft and nondistended Tenderness to palpation of left upper premolar; no appreciable gum disease Course Course Course Narrative: This is a Rapid Medical Examination (RME) performed by Alexsander Jha PA-C in triage. Full HPI, ROS, assessment and treatment plan per primary provider in the Main ED. 48 yo female hx of bipolar d/o here w/ chills, headache, epigastric abd pain, and diarrhea since last night. no known sick contacts. additionally reports left upper dental pain since yesterday. has appointment with dentist later this afternoon. + normal dentition, no abscess. +ttp around umbilicus, epigastric region. no rebound/ guarding. Plan: labs, viral serology Reevaluation(s) Reevaluation #1: I evaluated the patient. Labs and imaging were ordered in triage. I added on and urinalysis Time: 18:38 Medications Administered Discontinued Medications Generic Name Dose Route Start Last Admin Trade Name Eva PRN Reason Stop Dose Admin Acetaminophen 650 mg 04/23/24 18:40 04/23/24 19:06 Acetaminophen 325 Mg Tablet PO 04/23/24 18:41 650 mg ONCE ONE Administration Sodium Chloride 1,000 mls @ 999 mls/hr 04/23/24 18:45 04/23/24 20:07 Ns IV 04/23/24 19:45 Infused .Q1H1M OBI Infusion Ketorolac Tromethamine 15 mg 04/23/24 19:31 04/23/24 20:10 Ketorolac Tromethamine 15 Mg/Ml Vial IVPUSH 04/23/24 19:32 15 mg ONCE ONE Administration Metoclopramide HCl 10 mg 04/23/24 18:43 04/23/24 19:06 Metoclopramide Hcl 10 Mg/2 Ml Vial IVPUSH 04/23/24 18:44 10 mg ONCE ONE Administration Medical Decision Making Medical Decision Making [facility] Narrative: Patient's symptoms of diarrhea and abdominal pain are concerning for gastroenteritis, food-borne illness; less likely pancreatitis, biliary disease, C diff Patient is tooth pain likely secondary to dental caries versus dental abscess I ordered IV fluids, Reglan, Toradol and Tylenol On reassessment patient reports improvement in symptoms and I observed her walk with steady gait to bathroom Lipase normal and LFTs normal Urine test negative and urinalysis concerning for UTI Patient's GI symptoms likely secondary to a viral illness I will send a prescription for Augmentin the patient's pharmacy to treat odontogenic infection. I did tell her that this medication may worsen her GI symptoms. I instructed her follow up with her dentist and I gave her return precautions Differential Diagnosis Differential Diagnoses: The differential diagnosis associated with the presentation includes Dental caries versus dental abscess Gastroenteritis, food-borne illness; less likely C diff, pancreatitis, biliary disease Lab Data [facility] Lab Attestation statement: I reviewed the patient's lab results. Mild leukocytosis, stable H&H, no [place]IT[place] 04/23/24 12:41 04/23/24 12:41 Labs: Lab Results 04/23/24 04/23/24 Range/Units 12:41 20:28 WBC 14.7 H (4.8-10.8) X10*3/uL RBC 4.28 (4.20-5.50) X10*6/uL Hgb 13.5 (12.0-16.0) g/dl Hct 39.1 (37.0-47.0) % MCV 91.4 (80.0-98.0) fL MCH 31.5 (27.0-33.0) pg MCHC 34.5 (31.0-35.0) g/dl RDW 12.0 (11.0-16.0) % Plt Count 260 (160-400) X10*3/uL MPV 10.7 (9.4-12.3) fL Immature Gran % (Auto) 0.4 (0.0-0.4) % Neut % (Auto) 72.8 (45-73) % Lymph % (Auto) 20.9 (20-40) % [place] % (Auto) 5.2 (2-11) % Eos % (Auto) 0.4 (0-4) % Baso % (Auto) 0.3 (0-2) % Lymph # (Auto) 3.1 (1.2-4.9) X10*3/uL [place] # (Auto) 0.8 (0.1-1.2) X10*3/uL Eos # (Auto) 0.1 (0.0-0.4) X10*3/uL Baso # (Auto) 0.0 (0.0-0.2) X10*3/uL Abs Immat Gran (auto) 0.06 H (0.00-0.03) X10*3/uL Absolute Neuts (auto) 10.7 H (2.0-8.3) x10*3/uL Absolute Nucleated RBC 0.000 (0.0-0.012) X10*3/uL Nucleated RBC % (auto) 0.0 (0.0-0.2) /100WBC Sodium 139 (135-145) mmol/L Potassium 4.2 (3.3-5.1) mmol/L Chloride 107 (96-108) mmol/L Carbon Dioxide 29 (22-29) mmol/L Anion Gap 7 L (12-20) BUN 7 L (9-16) mg/dL Creatinine 0.73 (0.5-1.4) mg/dL Estim Creat Clear Calc 81.3 Estimated GFR > 60 Random Glucose 95 (60-115) mg/dL Calcium 9.6 (8.4-10.2) mg/dL Magnesium 2.1 (1.6-2.6) mg/dL Total Bilirubin 0.2 (0.0-1.0) mg/dL AST 15 (5-31) U/L ALT 15 (0-31) U/L Alkaline Phosphatase 57 (39-117) U/L Total Protein 7.1 (6.5-8.0) g/dL Albumin 4.2 (3.5-5.0) g/dL Lipase 22 (8-78) U/L Urine Color Yellow Urine Appearance Clear Urine pH 6.0 (5.0-9.0) Ur Specific [place] <= 1.005 (1.005-1.025) Urine Protein Negative (Neg-Trace) mg/dL Urine Glucose (UA) Negative (Negative) mg/dL Urine Ketones Negative (Negative) mg/dL Urine Blood Negative (Negative) Urine Nitrite Negative (Negative) Ur Leukocyte Esterase Negative (Negative) Urine Test NEGATIVE (NEGATIVE) Influenza Type A (PCR) NEGATIVE (Negative) Influenza Type B (PCR) NEGATIVE (Negative) RSV RNA Qual (PCR) NEGATIVE (Negative) SARS-CoV-2 RNA (RT-PCR) NEGATIVE (Negative) Independent Interpretation I performed an independent interpretation of an: CT Scan Interpretation: I did not appreciate surgical abdomen on CT scan Radiology Impression Discussion of test interpretation with radiology: I have reviewed the radiologist's reading. 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 take as instructed Please schedule appointment with your dentist If you develop any new or worsening symptoms please seek immediate medical attention or return to this emergency department Prescriptions: New amoxicillin-pot clavulanate [Augmentin] 500-125 mg tablet 1 tab PO Q12H 7 Days Qty: 14 0RF No Action Pulmicort Flexhaler 90 mcg/actuation aerosol powdr breath activated 1 inh inhalation BID 30 Days Qty: 1 4RF albuterol sulfate [Ventolin HFA] 90 mcg/actuation HFA aerosol inhaler 2 puff inhalation Q4-6H PRN (Reason: for wheezing) 30 Days Qty: 18 0RF omeprazole 40 mg capsule,delayed release(DR/EC) 40 mg PO DAILY Qty: 20 0RF clonazepam 1 mg tablet 1 mg PO BID mirtazapine 15 mg tablet 7.5 - 15 mg PO QAM simethicone [Gas Relief (simethicone)] 80 mg tablet,chewable 80 mg PO TID-QID PRN (Reason: abdominal distention) Qty: 20 0RF mirtazapine 30 mg tablet 30 mg PO BEDTIME gabapentin 300 mg capsule 300 mg PO BEDTIME Qty: 30 3RF Print Language: Tongan
[2024-04-23 12:57] LABS: MANUAL DIFF FLAG NO
[2024-04-23 12:59] LABS: Basophils Percent Auto 0.3 % (0-2); Eosinophils Absolute Auto 0.1 X10*3/uL (0.0-0.4); Eosinophils Percent Auto 0.4 % (0-4); Hematocrit 39.1 % (37.0-47.0); Hemoglobin 13.5 g/dl (12.0-16.0); Imm Gran Abs Auto 0.06 X10*3/uL (0.00-0.03); Imm Gran Pct Auto 0.4 % (0.0-0.4); Lymphocytes Absolute Auto 3.1 X10*3/uL (1.2-4.9); Lymphocytes Percent Auto 20.9 % (20-40); Mean Corpuscular HGB Conc 34.5 g/dl (31.0-35.0); Mean Corpuscular Hemoglobin 31.5 pg (27.0-33.0); Mean Corpuscular Volume 91.4 fL (80.0-98.0); Mean Platelet Volume 10.7 fL (9.4-12.3); Monocytes Absolute Auto 0.8 X10*3/uL (0.1-1.2); Monocytes Percent Auto 5.2 % (2-11); Neutrophils Absolute Auto 10.7 x10*3/uL (2.0-8.3); Neutrophils Percent Auto 72.8 % (45-73); Platelet Count 260 X10*3/uL (160-400); Red Blood Count 4.28 X10*6/uL (4.20-5.50); White Blood Count 14.7 X10*3/uL (4.8-10.8)
[2024-04-23 13:18] LABS: Alanine Aminotransferase 15 U/L (0-31); Albumin Level 4.2 g/dL (3.5-5.0); Alkaline Phosphatase 57 U/L (39-117); Anion Gap 7 (12-20); Aspartate Amino Transferase 15 U/L (5-31); Bilirubin Total 0.2 mg/dL (0.0-1.0); Blood Urea Nitrogen 7 mg/dL (9-16); Calcium 9.6 mg/dL (8.4-10.2); Carbon Dioxide 29 mmol/L (22-29); Chloride 107 mmol/L (96-108); Creatinine Clr Calc Pharmacy 81.3; Estimated Glomerular Filt Rate > 60; Glucose Random 95 mg/dL (60-115); Lipase 22 U/L (8-78); Magnesium 2.1 mg/dL (1.6-2.6); Potassium 4.2 mmol/L (3.3-5.1); Sodium 139 mmol/L (135-145); Total Protein 7.1 g/dL (6.5-8.0)
[2024-04-23 14:40] LABS: Influenza A PCR NEGATIVE (Negative); Influenza B PCR NEGATIVE (Negative); Resp Syncy Virus RNA Qual PCR NEGATIVE (Negative); SARS COV2 PCR INHOUSE NEGATIVE (Negative)
[2024-04-23] MEDS: Metoclopramide HCl 10 MG/2 ML VIAL IVPUSH (19:06)
[2024-04-23] MEDS: Acetaminophen 325 MG TABLET 650 MG PO (19:06)
[2024-04-23] MEDS: 0.9 % Sodium Chloride 1,000 ML 999 ML IV (19:06)
[2024-04-23 20:00] VITALS: BP 103/64; PULSE 68; RESP 16; TEMP 36; O2SAT 100
[2024-04-23] MEDS: Ketorolac Tromethamine 15 MG/ML VIAL IVPUSH (20:10)
[2024-04-23 20:42] LABS: Appearance Urine Clear; Color Urine Yellow; Glucose Urine UA Negative (Negative); Leukocyte Esterase Urine Negative (Negative); Nitrite Urine Negative (Negative); Specific Gravity - Urine <= 1.005 (1.005-1.025); Urine Blood Negative (Negative); Urine Ketones Negative (Negative); Urine Protein Negative (Neg-Trace)
[2024-04-23 20:46] LABS: UPreg QC Valid YES; Urine Pregnancy NEGATIVE (NEGATIVE)
--- NOTE | 2024-04-23 21:05 | MHC.EDTECH ---
This tech answered pt call, pt given sandwich and juice, RN notified that pt want to leave nevin.
[2024-04-23 21:53] VITALS: BP 110/60; PULSE 69; RESP 16; TEMP 36.1; O2SAT 100
== END 2024-04-23 21:54 | disposition home or self-care (01) ==
PROVIDERS: Physician Assistant Medical; Emergency Provider Student in an Organized Health Care Education/Training Program; PCP Internal Medicine
DX: K08.89 Other specified disorders of teeth and supporting structures (principal); R10.33 Periumbilical pain; Z03.818 Encounter for observation for suspected exposure to other biological agents ruled out; J45.909 Unspecified asthma, uncomplicated; F17.210 Nicotine dependence, cigarettes, uncomplicated; Z79.899 Other long term (current) drug therapy
CPT/HCPCS: 0241U; 74176; 80053; 81003; 81025; 83690; 83735; 85025; 96361; 96374; 96375; 99284; J1885; J2765